=== PATIENT | female | born 1945 | race Caucasian/White ===

== ENCOUNTER → 2018-04-19 | Outpatient (CLI) | payer OTHER ==
--- NOTE | 2018-04-19 16:48 | RAD ---
CHEST PA LATERAL Clinical indications: cough for a couple weeks COMPARISON: October 18, 2009. Findings: Hyperinflation is seen consistent with COPD No acute lung infiltrate or pleural effusion or pulmonary edema or lung mass or pneumothorax is seen. The heart size, pulmonary vasculature, mediastinum and both arline are stable. The osseous structures appear intact. Impression: No acute radiographic abnormality is seen. Electronically signed by: Quique Alan MD (04/19/2018 4:44 PM) [place] [id number]
== END | disposition home or self-care (01) ==
LOC: PMG 10:53
DX: R06.00 Dyspnea, unspecified (principal); R05 Cough
CPT/HCPCS: 71046

== ENCOUNTER 2018-11-21 16:15 | Emergency (ER) | payer OTHER ==
[~2018-11-21] VITALS: Ht 172.7 cm; Wt 88.5 kg
--- NOTE | 2018-11-21 16:37 | PHYS DOC ---
Past History Past Medical History: Cancer (breast), Other Additional Past Medical Histor: "leaky heart valve" (ARLYN CALLAHAN DO) Past Medical History: COPD, Hypertension (LIZ CHRISTIANSON DO) Past Surgical History: Cholecystectomy, Knee Replacement Additional Past Surgical Histo: Lumpectomy right breast (LIZ CHRISTIANSON DO) Smoking: Cigarettes Drug Use: None (ARLYN CALLAHAN DO) Alcohol Use: None (LIZ CHRISTIANSON DO) Adult General Chief Complaint Chief Complaint: CHEST PAIN HPI HPI Patient is a 73-year-old female presents with chest discomfort that started last night. Better with exertion, worse with rest. No radiation of the discomfort. Mild shortness of breath. She has a history of breast cancer as well as recent travel from [place]. No cough. No fever. Notes some mild worsening swelling in her lower extremities bilaterally. There is no orthopnea. No pain with deep breaths, in fact deep breaths seem to make symptoms a little bit better.[] (ARLYN CALLAHAN DO) Review of Systems Review of Systems Constitutional: Denies fever or chills [] Eyes: Denies change in visual acuity, redness, or eye pain [] HENT: Denies nasal congestion or sore throat [] Respiratory: See history of present illness[] Cardiovascular: No additional information not addressed in HPI [] GI: Denies abdominal pain, nausea, vomiting, bloody stools or diarrhea [] : Denies dysuria or hematuria [] Musculoskeletal: Denies back pain or joint pain [] Integument: Denies rash or skin lesions [] Neurologic: Denies headache, focal weakness or sensory changes [] Endocrine: Denies polyuria or polydipsia [] All other systems were reviewed and found to be within normal limits, except as documented in this note. (ARLYN CALLAHAN DO) Allergies Allergies Allergies Coded Allergies Type Severity Reaction Last Updated Verified morphine Allergy Mild 04/19/18 Yes (ARLYN CALLAHAN DO) Physical Exam Physical Exam Constitutional: Well developed, well nourished, no acute distress, non-toxic appearance. [] HENT: Normocephalic, atraumatic, bilateral external ears normal, oropharynx moist, no oral exudates, nose normal. [] Eyes: PERRLA, EOMI, conjunctiva normal, no discharge. [] Neck: Normal range of motion, no tenderness, supple, no stridor. [] Cardiovascular:Heart rate tachycardic with a regular rhythm, no murmur [] Lungs & Thorax: Bilateral breath sounds clear to auscultation [] Abdomen: Bowel sounds normal, soft, no tenderness, no masses, no pulsatile masses. [] Skin: Warm, dry, no erythema, no rash. [] Back: No tenderness, no CVA tenderness. [] Extremities: No tenderness, no cyanosis, no clubbing, ROM intact, and plus pretibial edema bilaterally symmetric. [] Neurologic: Alert and oriented X 3, normal motor function, normal sensory f unction, no focal deficits noted. [] Psychologic: Affect normal, judgement normal, mood normal. [] (ARLYN CALLAHAN DO) Physical Exam Constitutional: Well developed, well nourished, no acute distress, non-toxic appearance HENT: Normocephalic, atraumatic, oropharynx moist Eyes: Conjunctiva normal, no discharge Cardiovascular: Heart rate normal, regular rhythm Lungs & Thorax: Bilateral breath sounds clear to auscultation, no wheezing Skin: Warm, dry, no erythema, no rash Neurologic: Alert and oriented X 3 Psychologic: Affect normal, judgement normal (LIZ CHRISTIANSON DO) EKG EKG EKG shows sinus tachycardia at 113 bpm, ST depressions in the anterior leads. Additional views were taken of the EKG including right-sided that did not show any ST elevations and posterior EKG was also performed that did not show any ST elevations. Initial EKG of obtained and interpreted by me at 1626. Repeat EKG at 1756 shows a rate of 96 bpm, normal axis, QTC of 423 ms, no improvement of ST depressions in the anterolateral leads, without resolution[] (ARLYN CALLAHAN DO) Radiology/Procedures Radiology/Procedures PROCEDURE: PORTABLE CHEST 1V EXAM: CHEST 1 VIEW History: Chest pain COMPARISON: 04/19/2018 TECHNIQUE: Single portable radiograph of the chest FINDINGS: Unchanged heart size. Prominent appearing aorta probably tortuous aorta. Minimal bibasilar lung atelectasis. The costophrenic sulci are clear and well demarcated. IMPRESSION: No acute cardiopulmonary findings. [] (ARLYN CALLAHAN DO) Radiology/Procedures PROCEDURE: CT ANGIOGRAPHY CHEST INDICATION: Chest pain and tachycardia COMPARISON: September 2009 CT chest TECHNIQUE: Axial CT images obtained through the chest. Intravenous contrast utilized. Angiogram 3D images processed per protocol. Additionally precontrast images were obtained One or more of the following individualized dose reduction techniques were utilized for this examination: 1. Automated exposure control; 2. Adjustment of the mA and/or kV according to patient size; 3. Use of iterative reconstruction technique. FINDINGS: Cystic changes within the bilateral lungs. No evidence of pneumothorax. There is some regions of interstitial thickening. Multiple pulmonary nodules which are less than 6 mm in size within the right lung. There is also some sub-6 mm nodules left lung Multiple low-density lesions within the partially visualized liver. Largest one has a cystic appearance and many of them are too small to characterize on this nondedicated exam. Mixed Attenuation right adrenal nodule measuring up to 35 mm with suspected fat and soft tissue component. Coronary artery calcific atherosclerosis. Postoperative changes to the right breast. There are some prominent lymph nodes within the mediastinum including precarinal region measuring up to 14 mm. Thyroid nodules. Degenerative changes throughout the spine. There are some calcified plaque within the thoracic aorta. Dilatation of the descending thoracic aorta which measures up to about 48 mm. The descending thoracic aorta has a crescent-shaped rim of low density along the periphery measuring up to about 15 mm in thickness. No central pulmonary embolus. IMPRESSION: No central pulmonary embolus. Aneurysmal dilatation of the ascending thoracic aorta measuring up to about 48 mm. [place]-shaped rim of soft tissue density along the descending thoracic aorta. Differential considerations include soft plaque as well as mural hematoma/mural thrombus. This was not present on prior from 2009 There are some small lung nodules measuring less than 6 mm. Cystic changes lungs which can be seen with chronic lung disease. Mixed attenuation right adrenal nodule is identified. There is some fat and some higher density component within. Could be from causes such as myelolipoma however a collision tumor is not excluded and a nonemergent MRI could better evaluate if further clarification is desired. Thyroid nodules. Ultrasound could better evaluate if further evaluation is desired. Fleischner Society recommendations for solitary solid lung nodule follow up.: In a low risk patient: <6mm - No follow up required. 6-8mm - 6-[address], then CT at 18-24 months. >8mm - CT at 3 months, PET/CT or tissue sampling. In a high risk patient (history of smoking or other known risk factors): <6mm - Follow up CT at 12 months. 6-8mm - 6-[address], then CT at 18-24 months. >8mm - CT at 3 months, PET/CT or tissue sampling. Fleischner Society recommendations for multiple solid lung nodule follow up.: In a low risk patient: <6mm - No follow up required. 6-8mm - 3-[address], then CT at 18-24 months. >8mm - CT at 3-6 months, then at 18-24 months. PET/CT or tissue sampling based on most suspicious nodule. In a high risk patient (history of smoking or other known risk factors): <6mm - Follow up CT at 12 months. 6-8mm - 3-[address], then CT at 18-24 months. >8mm - CT at 3-6 months, PET/CT or tissue sampling option based on most suspicious nodule. Electronically signed by: Cl Nino MD (11/21/2018 7:05 PM) [facility] (LIZ CHRISTIANSON DO) Course & Med Decision Making Course & Med Decision Making Pertinent Labs and Imaging studies reviewed. (See chart for details) ED course and medical decision making: Patient arrived, was placed in bed, and tolerated exam well. She was given aspirin due to concern about cardiac soy ology. Due to concern about possible PE given her risk factors of travel/stasis and hypercoagulable state from her breast cancer a CT angiogram of the chest wall PE was ordered. This showed some questionable filling defects in the thoracic aorta so a CT angiogram of the aorta was ordered. During this time, it was noted that she had an elevated troponin, consultation was made with c ardiology service. Consultation was also made with the hospitalist service who graciously accepted. At the time of this dictation patient cares endorsed to the nighttime physician with the CTA pending along with the transfer pending[] (ARLYN CALLAHAN DO) Course & Med Decision Making 1800- Sign out received from Dr. Callahan for patient with elevated troponin and significant ST depressions noted on EKG. Dr. Callahan previously discussed case with Dr. Jaramillo (hospitalist) and Dr. Gautam (cardiology) with plan for transfer to [facility]. Awaiting CT imaging for r/o dissection. Patient seen and evaluated by myself. Patient denies pain. Telemetry monitoring with normalization of ST segments. Labs reviewed. CTA chest without findings of dissection but noted significant ascending aortic aneurysm with concern for area with possible thrombus vs soft plaquing. Heparin bolus and gtt initiated. Brilinta also provided. CT findings of incidental pulmonary nodu les. Patient reports prior knowledge of pulmonary nodule. A copy of CT results provided to patient to given to PCP for future follow-up. 2100- Discussed CTA results with both Dr. Jaramillo and Dr. Gautam. Patient stable for transfer for previously arranged transfer for admission to [facility] under Dr. Jaramillo. Discussed findings and plan with patient and family, who acknowledge understanding and agreement. (LIZ CHRISTIANSON DO) Dragon Disclaimer Dragon Disclaimer This electronic medical record was generated, in whole or in part, using a voice recognition dictation system. (ARLYN CALLAHAN DO) Departure Departure: Impression: Primary Impression: NSTEMI (non-ST elevated myocardial infarction) Additional Impressions: Aortic aneurysm Lung nodule, multiple Disposition: 05 TRANSFER OTHER ([facility]) Admitting Physician: Randy Jaramillo (LIZ CHRISTIANSON DO) Condition: GUARDED Referrals: NICHELLE SOUZA (PCP) HEART Score for Chest Pain PTs The HEART Score for CP Pts HEART Score for Chest Pain: HEART Score for Chest Pain Response (Comments) Value History Highly Suspicious [address] Depression 2 Age > 65 2 Risk Factors >3 Risk Factors or Hx CAD 2 Troponin >3 x Normal Limit 2 Total 10 Risk Factors: Risk Factors: DM, Current or recent (<one month) smoker, HTN, HLP, family history of CAD, obesity. Risk Scores: Score 0 - 3: 2.5% MACE over next 6 weeks - Discharge Home Score 4 - 6: 20.3% MACE over next 6 weeks - Admit for Clinical Observation Score 7 - 10: 72.7% MACE over next 6 weeks - Early Invasive Strategies (LIZ CHRISTIANSON DO) Critical Care Time Critical care time was 30 minutes which includes time at bedside, spent in discussion of patient's care with specialists and/or family members, with interpretation of laboratory and/or radiological studies and is exclusive of procedures. (LIZ CHRISTIANSON DO) Problem Qualifiers Additional Impressions: Aortic aneurysm Aortic location: thoracic aorta Presence of rupture: without rupture Qualified Codes: I71.2 - Thoracic aortic aneurysm, without rupture ARLYN CALLAHAN DO Nov 21, 2018 16:37 LIZ CHRISTIANSON DO Nov 21, 2018 21:29
--- NOTE | 2018-11-21 16:49 | RAD ---
EXAM: CHEST 1 VIEW History: Chest pain COMPARISON: 04/19/2018 TECHNIQUE: Single portable radiograph of the chest FINDINGS: Unchanged heart size. Prominent appearing aorta probably tortuous aorta. Minimal bibasilar lung atelectasis. The costophrenic sulci are clear and well demarcated. IMPRESSION: No acute cardiopulmonary findings. Electronically signed by: Sung Armstrong MD (11/21/2018 4:46 PM) [place] [id number]
[2018-11-21 16:53] LABS: BASO % 1 % (0-3); EOS % 0 % (0-3); HEMATOCRIT 41.9 % (36.0-47.0); HEMOGLOBIN 13.8 g/dL (12.0-15.5); LYMPH # 0.9 x10^3/uL (1.0-4.8); LYMPH % 25 % (24-48); MEAN CORPUSCULAR HEMOGLOBIN 36 pg (25-35); MEAN CORPUSCULAR HGB CONC 33 g/dL (31-37); MEAN CORPUSCULAR VOLUME 110 fL (79-100); MONO # 0.6 x10^3/uL (0.0-1.1); MONO % 16 % (0-9); NEUT # 2.2 x10^3uL (1.8-7.7); NEUT % 58 % (31-73); PLATELET COUNT 140 x10^3/uL (140-400); RED CELL DISTRIBUTION WIDTH 14.7 % (11.5-14.5); WHITE BLOOD COUNT 3.8 x10^3/uL (4.0-11.0)
[2018-11-21] MEDS: IV NORMAL SALINE 1,000ML 1,000 ML IV SCH (16:58)
[2018-11-21] MEDS: ASPIRIN 81 MG TAB.CHEW PO ONE (16:58)
[2018-11-21] MEDS ORDERED: IOHEXOL 350 MG/ML 100 ML VIAL. IV ONE ×2 (17:00→18:15)
--- NOTE | 2018-11-21 17:03 | EKG ---
[address] [address] Test Date: 2018-11-21 Test Time: 16:52:17 Pat Name: DEB HOLLY Department: Room: Gender: F Terminal Carman: RUPERT : 1945 Requested By: ARLYN CANTOR Order Number: [id number] Reading MD: Measurements Intervals [place] Rate: 99 P: SD: QRS: 70 QRSD: 88 T: 63 QT: 332 QTc: 431 Interpretive Statements IRREGULAR RHYTHM, NO P-WAVE FOUND VENTRICULAR PREMATURE COMPLEX(ES) QRS(T) CONTOUR ABNORMALITY CONSISTENT WITH ANTEROLATERAL INFARCT AGE UNDETERMINED ABNORMAL ECG RI6.01 No previous ECG available for comparison
--- NOTE | 2018-11-21 17:10 | EKG ---
[address] [address] Test Date: 2018-11-21 Test Time: 16:31:18 Pat Name: DEB HOLLY Department: Room: Gender: F Memorial Adviser: MELANIE : 1945 Requested By: ARLYN CANTOR Order Number: [id number] Reading MD: Measurements Intervals [place] Rate: 110 P: 90 [place]: 192 QRS: 68 QRSD: 90 T: 55 QT: 306 QTc: 419 Interpretive Statements SINUS TACHYCARDIA COMPLEX(ES) WITH ABERRANT INTRAVENTRICULAR CONDUCTION QRS(T) CONTOUR ABNORMALITY CONSISTENT WITH ANTEROLATERAL INFARCT AGE UNDETERMINED T ABNORMALITY IN ANTERIOR LEADS ABNORMAL ECG RI6.01 No previous ECG available for comparison
[2018-11-21 17:15] LABS: ALBUMIN 3.9 g/dL (3.4-5.0); ALBUMIN/GLOBULIN RATIO 1.3 (1.0-1.7); CALCIUM 9.7 mg/dL (8.5-10.1); GFR 54.2; MAGNESIUM 1.9 mg/dL (1.8-2.4); POTASSIUM 3.7 mmol/L (3.5-5.1); TOTAL BILIRUBIN 0.3 mg/dL (0.2-1.0); TOTAL PROTEIN 6.9 g/dL (6.4-8.2)
--- NOTE | 2018-11-21 17:16 | EKG ---
[address] [address] Test Date: 2018-11-21 Test Time: 16:26:51 Pat Name: DEB HOLLY Department: Room: Gender: F Row Boss Hoeing: MELANIE : 1945 Requested By: ARLYN CANTOR Order Number: [id number] Reading MD: Alejandro Gautam MD Measurements Intervals [place] Rate: 113 P: 90 [place]: 176 QRS: 61 QRSD: 94 T: 38 QT: 328 QTc: 456 Interpretive Statements SINUS TACHYCARDIA FREQUENT PVC'S ANTEROLATERAL ISCHEMIA Electronically Signed On 11-22-2018 9:25:06 CDT by Alejandro Gautam MD
[2018-11-21] MEDS: IOHEXOL 300 MG/ML 75 ML VIAL. IV ONE (17:40)
[2018-11-21] MEDS ORDERED: HEPARIN for IV BOLUS 10,000 UNIT/10 ML VIAL. IV ONE (17:45)
[2018-11-21] MEDS ORDERED: HEPARIN 25,000UTS/500ML PREMIX 500 ML IV PRN (17:45)
[2018-11-21] MEDS ORDERED: HEPARIN for IV BOLUS 10,000 UNIT/10 ML VIAL. IV PRN ×2 (17:45)
--- NOTE | 2018-11-21 17:58 | EKG ---
[address] [address] Test Date: 2018-11-21 Test Time: 17:56:29 Pat Name: DEB HOLLY Department: Room: Gender: F [employer] Methods Analyst: RUPERT : 1945 Requested By: ARLYN CANTOR Order Number: [id number] Reading MD: Measurements Intervals [place] Rate: 96 P: 53 [place]: 192 QRS: 68 QRSD: 90 T: 60 QT: 334 QTc: 423 Interpretive Statements SINUS RHYTHM QRS(T) CONTOUR ABNORMALITY CONSIDER ANTEROLATERAL MYOCARDIAL DAMAGE POSSIBLY ABNORMAL ECG RI6.01 No previous ECG available for comparison
[2018-11-21 18:23] LABS: ANISOCYTOSIS SLIGHT; PLT ESTIMATE ADEQUATE (ADEQUATE)
[2018-11-21] MEDS: IOHEXOL 350 MG/ML 100 ML VIAL. IV ONE (18:57)
--- NOTE | 2018-11-21 19:08 | RAD ---
INDICATION: Chest pain and tachycardia COMPARISON: September 2009 CT chest TECHNIQUE: Axial CT images obtained through the chest. Intravenous contrast utilized. Angiogram 3D images processed per protocol. Additionally precontrast images were obtained One or more of the following individualized dose reduction techniques were utilized for this examination: 1. Automated exposure control; 2. Adjustment of the mA and/or kV according to patient size; 3. Use of iterative reconstruction technique. FINDINGS: Cystic changes within the bilateral lungs. No evidence of pneumothorax. There is some regions of interstitial thickening. Multiple pulmonary nodules which are less than 6 mm in size within the right lung. There is also some sub-6 mm nodules left lung Multiple low-density lesions within the partially visualized liver. Largest one has a cystic appearance and many of them are too small to characterize on this nondedicated exam. Mixed Attenuation right adrenal nodule measuring up to 35 mm with suspected fat and soft tissue component. Coronary artery calcific atherosclerosis. Postoperative changes to the right breast. There are some prominent lymph nodes within the mediastinum including precarinal region measuring up to 14 mm. Thyroid nodules. Degenerative changes throughout the spine. There are some calcified plaque within the thoracic aorta. Dilatation of the descending thoracic aorta which measures up to about 48 mm. The descending thoracic aorta has a crescent-shaped rim of low density along the periphery measuring up to about 15 mm in thickness. No central pulmonary embolus. IMPRESSION: No central pulmonary embolus. Aneurysmal dilatation of the ascending thoracic aorta measuring up to about 48 mm. [place]-shaped rim of soft tissue density along the descending thoracic aorta. Differential considerations include soft plaque as well as mural hematoma/mural thrombus. This was not present on prior from 2009 There are some small lung nodules measuring less than 6 mm. Cystic changes lungs which can be seen with chronic lung disease. Mixed attenuation right adrenal nodule is identified. There is some fat and some higher density component within. Could be from causes such as myelolipoma however a collision tumor is not excluded and a nonemergent MRI could better evaluate if further clarification is desired. Thyroid nodules. Ultrasound could better evaluate if further evaluation is desired. Fleischner Society recommendations for solitary solid lung nodule follow up.: In a low risk patient: <6mm - No follow up required. 6-8mm - 6-[address], then CT at 18-24 months. >8mm - CT at 3 months, PET/CT or tissue sampling. In a high risk patient (history of smoking or other known risk factors): <6mm - Follow up CT at 12 months. 6-8mm - 6-[address], then CT at 18-24 months. >8mm - CT at 3 months, PET/CT or tissue sampling. Fleischner Society recommendations for multiple solid lung nodule follow up.: In a low risk patient: <6mm - No follow up required. 6-8mm - 3-[address], then CT at 18-24 months. >8mm - CT at 3-6 months, then at 18-24 months. PET/CT or tissue sampling based on most suspicious nodule. In a high risk patient (history of smoking or other known risk factors): <6mm - Follow up CT at 12 months. 6-8mm - 3-[address], then CT at 18-24 months. >8mm - CT at 3-6 months, PET/CT or tissue sampling option based on most suspicious nodule. Electronically signed by: Cl Nino MD (11/21/2018 7:05 PM) [facility]
--- NOTE | 2018-11-21 19:49 | RAD ---
Please note that the patient originally had a pulmonary embolus protocol CT examination however there is an aortic abnormality therefore pre and postcontrast images were obtained per aorta protocol. The dictation under the pulmonary embolus heading pertains to both studies. Electronically signed by: Cl iNno MD (11/21/2018 7:45 PM) [facility]
[2018-11-21] MEDS: HEPARIN for IV BOLUS 10,000 UNIT/10 ML VIAL. IV ONE (20:15)
[2018-11-21] MEDS: METOPROLOL TART IMMED RELEASE 25 MG TABLET PO ONE (20:19)
[2018-11-21] MEDS: TICAGRELOR 90 MG TABLET. PO ONE (20:20)
[2018-11-21] MEDS: HEPARIN 25,000UTS/500ML PREMIX 500 ML IV PRN (20:22)
[2018-11-21 21:17] VITALS: BP 152/82
== END 2018-11-21 21:27 | disposition short-term general hospital (02) ==
LOC: ER 16:15
DX: I21.4 Non-ST elevation (NSTEMI) myocardial infarction (principal); I71.2 Thoracic aortic aneurysm, without rupture; R91.8 Other nonspecific abnormal finding of lung field; J44.9 Chronic obstructive pulmonary disease, unspecified; I10 Essential (primary) hypertension; F17.210 Nicotine dependence, cigarettes, uncomplicated; Z88.5 Allergy status to narcotic agent
CPT/HCPCS: 36415; 71045; 71275; 80053; 83690; 83735; 83880; 84484; 85025; 85379; 85610; 85730; 93005; 96365; 96375; 96376; 99291; J1644; J3010; Q9967; 99285-25; J7030

== ENCOUNTER 2018-12-14 11:07 | Observation (INO) | payer OTHER ==
[~2018-12-14] VITALS: Ht 172.7 cm; Wt 88.0 kg
--- NOTE | 2018-12-14 11:46 | PHYS DOC ---
Past History Past Medical History: CAD, COPD, High Cholesterol, Hypertension Additional Past Medical Histor: "leaky heart valve" Past Surgical History: Cholecystectomy, Knee Replacement, Other Additional Past Surgical Histo: Lumpectomy right breast Smoking: Cigarettes Alcohol Use: None Drug Use: None Adult General Chief Complaint Chief Complaint: CHEST PAIN-CARDIAC NATURE HPI HPI Patient is a 73-year-old female presents complaining of diaphoresis and a little bit of chest pain this morning. Discomfort improved with deep breaths. Little bit worse with exertion, better with rest. There is no radiation of the discomfort. Patient was treated for a non-STEMI approximately 3 weeks ago with cardiac stenting. She has been on her new medicine since that time. She also endorses feeling of sleepiness today as well. She denies any fever. Denies any cough. She notes her left leg is swollen when compared to yesterday. She does have a history of breast cancer, and was taken off of her chemotherapy oral medication approximately 3 weeks ago as well.[] Review of Systems Review of Systems Constitutional: Denies fever or chills [] Eyes: Denies change in visual acuity, redness, or eye pain [] HENT: Denies nasal congestion or sore throat [] Respiratory: Denies cough or shortness of breath [] Cardiovascular: No additional information not addressed in HPI [] GI: Denies abdominal pain, nausea, vomiting, bloody stools or diarrhea [] : Denies dysuria or hematuria [] Musculoskeletal: Denies back pain or joint pain, see history of present illness [] Integument: Denies rash or skin lesions [] Neurologic: Denies headache, focal weakness or sensory changes [] Endocrine: Denies polyuria or polydipsia [] All other systems were reviewed and found to be within normal limits, except as documented in this note. Allergies Allergies Allergies Coded Allergies Type Severity Reaction Last Updated Verified morphine Allergy Mild 12/14/18 Yes Physical Exam Physical Exam Constitutional: Well developed, well nourished, no acute distress, non-toxic appearance. [] HENT: Normocephalic, atraumatic, bilateral external ears normal, oropharynx moist, no oral exudates, nose normal. [] Eyes: PERRLA, EOMI, conjunctiva normal, no discharge. [] Neck: Normal range of motion, no tenderness, supple, no stridor. [] Cardiovascular:Heart rate regular rhythm, no murmur [] Lungs & Thorax: Bilateral breath sounds clear to auscultation [] Abdomen: Bowel sounds normal, soft, no tenderness, no masses, no pulsatile masses. [] Skin: Warm, dry, no erythema, no rash. [] Back: No tenderness, no CVA tenderness. [] Extremities: No tenderness, no cyanosis, no clubbing, ROM intact, left lower extremity is swollen compared to her right. Negative Homans sign[] Neurologic: Alert and oriented X 3, normal motor function, normal sensory function, no focal deficits noted. [] Psychologic: Affect normal, judgement normal, mood normal. [] Current Patient Data Vital Signs Vital Signs Date Time Temp Pulse Resp B/P (MAP) Pulse Ox O2 Delivery O2 Flow Rate FiO2 12/14/18 11:15 98.6 60 18 98 Room Air EKG EKG EKG shows a sinus rhythm at 50 bpm, normal axis, QTC of 376 ms, no ST eleva tions. When compared with EKG of 11/21/2018, the ST depression in the anterolateral leads has generally improved. Interpreted by me at 1116.[] Radiology/Procedures Radiology/Procedures PROCEDURE: CT ANGIOGRAPHY CHEST Examination: CT angiography chest HISTORY: History of chest pain, elevated d-dimer, history of breast cancer. COMPARISON: 11/21/2018 TECHNIQUE: Axial CT angiographic images of chest were performed with IV contrast. Coronal and sagittal 3-D MIP reformats are performed. Exposure: One or more of the following individualized dose reduction techniques were utilized for this examination: 1. Automated exposure control 2. Adjustment of the mA and/or kV according to patient size 3. Use of iterative reconstruction technique FINDINGS: Hypodense nodule identified in the left lobe of thyroid gland similar to prior exam. The central airways are patent. The ascending aorta measures 5 cm in transverse dimension. Mural thrombus or soft plaque identified in the descending aorta similar to prior exam. Evaluation of the aorta is limited without IV contrast within the aorta. The heart size grossly appears unremarkable. No evidence of filling defect identified in the main pulmonary arterial trunk and right and left main pulmonary arteries and the visualized lobar, segmental branches of the pulmonary arteries. Mild lung emphysematous changes. Mild bibasilar lung airspace opacities likely atelectasis or infiltrates. The liver demonstrates cystic structures the largest measuring 1.6 cm and the left lobe likely cysts. The spleen, left adrenal grossly appears unremarkable. There is a nodule identified in the right adrenal gland measuring 2.4 cm and measuring 29 Hounsfield units similar to prior exam. Moderate degenerative changes thoracic spine. IMPRESSION: 1. No evidence of pulmonary embolism. 2. Aneurysmal dilatation of the ascending thoracic aorta again identified. 3. Right adrenal lesion similar to prior exam. Follow-up nonemergent MRI can be considered. PROCEDURE: PORTABLE CHEST 1V EXAM: CHEST 1 VIEW History: Shortness of breath COMPARISON: 04/19/2018 TECHNIQUE: Single portable radiograph of the chest FINDINGS: Mild cardiomegaly. Tortuous appearing aorta similar to prior exam. The lungs are clear. Surgical clips project in the right chest . IMPRESSION: No acute cardiopulmonary findings[] Course & Med Decision Making Course & Med Decision Making Pertinent Labs and Imaging studies reviewed. (See chart for details) ED course: Patient arrived, was placed in bed, and tolerated exam well. She was given IV fluids, transported to and from radiology with any complications. After the return of laboratory and imaging studies, these were discussed with the patient and family who voiced understanding. All questions were answered. Consultation was made with hospitalist service for admission. She was admitted in improved condition. Discussion with cardiology, they felt if 2 sets of cardiac enzymes were negative she could be admitted here at [facility] for further evaluation and treatment. Medical decision makin-year-old female with chest discomfort. She is post recent cardiac catheter with stent placement for a non-STEMI. There is no evid ence of a pulmonary embolism on CT scan after her history of breast cancer, a swollen left leg, and elevated d-dimer. There is no evidence of a dissecting aneurysm. There is an aneurysm noted. No evidence of pneumonia or pneumothorax. No evidence of esophageal rupture. She is being admitted for further evaluation and treatment.[] Dragon Disclaimer Dragon Disclaimer This electronic medical record was generated, in whole or in part, using a voice recognition dictation system. Departure Departure: Impression: Primary Impression: Chest pain Disposition: ADMITTED INPATIENT Admitting Physician: Randy Jaramillo Condition: IMPROVED Referrals: NICHELLE SOUZA (PCP) Problem Qualifiers Primary Impression: Chest pain Chest pain type: unspecified Qualified Codes: R07.9 - Chest pain, unspecified ARLYN CANTOR DO Dec 14, 2018 11:46
[2018-12-14 11:48] LABS: BASO % 1 % (0-3); EOS # 0.1 x10^3/uL (0.0-0.7); EOS % 2 % (0-3); HEMATOCRIT 33.7 % (36.0-47.0); HEMOGLOBIN 11.3 g/dL (12.0-15.5); LYMPH # 0.8 x10^3/uL (1.0-4.8); LYMPH % 32 % (24-48); MEAN CORPUSCULAR HEMOGLOBIN 37 pg (25-35); MEAN CORPUSCULAR HGB CONC 33 g/dL (31-37); MEAN CORPUSCULAR VOLUME 109 fL (79-100); MONO # 0.6 x10^3/uL (0.0-1.1); MONO % 21 % (0-9); NEUT # 1.1 x10^3uL (1.8-7.7); NEUT % 43 % (31-73); PLATELET COUNT 142 x10^3/uL (140-400); RED BLOOD COUNT 3.08 x10^6/uL (3.50-5.40); RED CELL DISTRIBUTION WIDTH 14.8 % (11.5-14.5); WHITE BLOOD COUNT 2.6 x10^3/uL (4.0-11.0)
[2018-12-14 12:01] LABS: ALBUMIN 3.3 g/dL (3.4-5.0); CALCIUM 8.7 mg/dL (8.5-10.1); CREATININE 1.3 mg/dL (0.6-1.0); POTASSIUM 3.6 mmol/L (3.5-5.1); TOTAL BILIRUBIN 0.4 mg/dL (0.2-1.0); TOTAL PROTEIN 6.5 g/dL (6.4-8.2)
--- NOTE | 2018-12-14 12:07 | RAD ---
EXAM: CHEST 1 VIEW History: Shortness of breath COMPARISON: 04/19/2018 TECHNIQUE: Single portable radiograph of the chest FINDINGS: Mild cardiomegaly. Tortuous appearing aorta similar to prior exam. The lungs are clear. Surgical clips project in the right chest . IMPRESSION: No acute cardiopulmonary findings Electronically signed by: Sung Armstrong MD (12/14/2018 12:05 PM) [id number]
[2018-12-14] MEDS ORDERED: IV NORMAL SALINE 500ML 500 ML IV ONE (12:30)
[2018-12-14] MEDS ORDERED: IOHEXOL 350 MG/ML 100 ML VIAL. IV ONE (12:45)
--- NOTE | 2018-12-14 13:06 | EKG ---
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
[2018-12-14 13:10] LABS: BACTERIA,URINE 0 /HPF (0-FEW); BILIRUBIN,URINE NEG (NEG); CLARITY,URINE HAZY; COLOR,URINE YELLOW; GLUCOSE,URINE NEG (NEG); NITRITE,URINE NEG (NEG); RBC,URINE OCC /HPF (0-2); SQUAMOUS EPITHELIAL CELL,UR OCC /LPF; UROBILINOGEN,URINE 0.2 mg/dL (0.2 mg/dL); WBC,URINE OCC /HPF (0-4)
--- NOTE | 2018-12-14 13:37 | RAD ---
Examination: CT angiography chest HISTORY: History of chest pain, elevated d-dimer, history of breast cancer. COMPARISON: 11/21/2018 TECHNIQUE: Axial CT angiographic images of chest were performed with IV contrast. Coronal and sagittal 3-D MIP reformats are performed. Exposure: One or more of the following individualized dose reduction techniques were utilized for this examination: 1. Automated exposure control 2. Adjustment of the mA and/or kV according to patient size 3. Use of iterative reconstruction technique FINDINGS: Hypodense nodule identified in the left lobe of thyroid gland similar to prior exam. The central airways are patent. The ascending aorta measures 5 cm in transverse dimension. Mural thrombus or soft plaque identified in the descending aorta similar to prior exam. Evaluation of the aorta is limited without IV contrast within the aorta. The heart size grossly appears unremarkable. No evidence of filling defect identified in the main pulmonary arterial trunk and right and left main pulmonary arteries and the visualized lobar, segmental branches of the pulmonary arteries. Mild lung emphysematous changes. Mild bibasilar lung airspace opacities likely atelectasis or infiltrates. The liver demonstrates cystic structures the largest measuring 1.6 cm and the left lobe likely cysts. The spleen, left adrenal grossly appears unremarkable. There is a nodule identified in the right adrenal gland measuring 2.4 cm and measuring 29 Hounsfield units similar to prior exam. Moderate degenerative changes thoracic spine. IMPRESSION: 1. No evidence of pulmonary embolism. 2. Aneurysmal dilatation of the ascending thoracic aorta again identified. 3. Right adrenal lesion similar to prior exam. Follow-up nonemergent MRI can be considered. Electronically signed by: Sung Armstrong MD (12/14/2018 1:34 PM) [id number]
[2018-12-14] MEDS ORDERED: ACETAMINOPHEN 325 MG TABLET PO PRN (15:30)
[2018-12-14] MEDS ORDERED: NITROGLYCERIN SUBLINGUAL 0.4 MG BOTTLE OF 25. SL PRN (15:30)
[2018-12-14] MEDS ORDERED: ONDANSETRON PF 4 MG/2 ML VIAL. IV PRN (15:30)
[2018-12-14 16:24] VITALS: BP 147/72
[2018-12-14] MEDS ORDERED: TICA90TA PO (17:33)
[2018-12-14] MEDS ORDERED: ASPI-630 PO (17:33)
[2018-12-14] MEDS ORDERED: SIMV40TA3 PO (17:33)
[2018-12-14] MEDS ORDERED: FURO-69 PO (17:45)
[2018-12-14] MEDS ORDERED: CHOL100014 PO (17:45)
[2018-12-14] MEDS ORDERED: VALS80TA3 PO (17:45)
[2018-12-14] MEDS ORDERED: METO25TA4 PO (17:45)
[2018-12-14] MEDS ORDERED: CALC-30 PO (17:45)
--- NOTE | 2018-12-14 18:18 | HP ---
ADMIT DATE: 12/14/2018 HISTORY OF PRESENT ILLNESS: The patient is a 73-year-old female patient who came to the Emergency Room, complaining that she woke up this morning with marked diaphoresis, has also chest pain and discomfort that has improved with deep breath. Her chest discomfort is worse with exertion, better with rest. Denied any radiation. She has had non-ST segment elevation myocardial infarction 2 weeks ago with cardiac stenting. She in fact has triple vessel disease and was seen by the cardiothoracic surgeon for coronary artery bypass graft surgery; however, she has stage 4 breast cancer and a decision was made to stent her left anterior and circumflex arteries. The patient denied any fever, denied any chills or rigors. Denied any cough. She was concerned that her left leg is more swollen when compared to yesterday and she was worried that she might have clots in her legs. She has a history of breast cancer and was taken off for her chemotherapy, oral medication approximately 3 weeks ago. She apparently contacted her primary workers compensation manager, who recommended that she come to the Emergency Room here at [facility] where she was evaluated. She has 2 sets of cardiac enzymes that were negative for myocardial infarction and therefore, a decision was made to admit her to [facility]. She was extensively investigated in the Emergency Room and was found to have leukopenia as well as mild thrombocytopenia. Her chemistry showed that her 2 sets of cardiac enzymes were less than 0.017. Her D-dimer was high at 2.46. Urinalysis was unremarkable. She has had a CT angio of the chest, which basically showed the patient has hypodense nodule identified in the left lower thyroid gland similar to prior exam. Central airways are patent. Ascending aorta measures 5 cm in transverse diameter. She has mural thrombus or soft plaque identified in the descending aorta similar to prior exam. Evaluation of the aorta is limited without IV contrast within the aorta. The heart size grossly appears unremarkable. No evidence of filling defects identified in the main pulmonary arterial trunk and right and left main pulmonary arteries and the visualized lobar segmental branches of the pulmonary arteries, mild lung emphysematous changes, mild bibasilar lung airspace opacities likely atelectasis or infiltrates. The liver demonstrates cystic structures, the largest measured 1 cm and the left adrenal grossly appears unremarkable. There is a nodule identified in the right adrenal gland measuring 2.4 cm and measures 29 Hounsfield units, similar to prior exam. Moderate degenerative changes of thoracic spine. Therefore, the finding which showed no evidence of pulmonary embolism, aneurysmal dilatation of the ascending thoracic aorta again identified and right adrenal lesion similar to prior exam. The patient was admitted to be investigated further. We did consult the cardiology team for that. PAST MEDICAL HISTORY: Significant for; 1. Non-ST segment elevation myocardial infarction. 2. Coronary artery disease, status post percutaneous coronary intervention with stent deployment to the left anterior descending and left circumflex. The patient has ascending aortic aneurysm with possible mural thrombus, has stage 4 breast cancer. She is also known to have chronic obstructive pulmonary disease, hypertension. PAST SURGICAL HISTORY: Significant for knee replacement, cholecystectomy, lumpectomy of the right breast, most recently PCI with stent deployment to the left ascending and left circumflex artery. FAMILY HISTORY: Noncontributory. SOCIAL HISTORY: She is . Quit smoking since she had non-ST segment elevation myocardial infarction. She does not drink alcohol or use any recreational drugs. ALLERGIES: She is allergic to MORPHINE. REVIEW OF SYSTEMS: As per history of present illness. PHYSICAL EXAMINATION: GENERAL: On arrival to the Emergency Room, she looked well, slightly pale, but no jaundice, cyanosis or thyromegaly. No jugular venous distention. No limb edema. VITAL SIGNS: Her heart rate was 60, blood pressure was 139/64, temperature was 98.6, respiratory rate was 18 and oxygen saturation was 98%. HEAD, EYES, EARS, NOSE AND THROAT: Showed normocephalic, atraumatic. NECK: Supple. HEART: Showed normal first and second heart sounds with no gallop, rub or murmur. CHEST: Clear to auscultation. No crepitation or rhonchi. ABDOMEN: Distended, soft, nontender. No guarding or rigidity. No organomegaly. All hernial orifices are intact. Bowel sounds normal. NEUROLOGIC: She is awake, alert, responding appropriately. All cranial nerves intact. EXTREMITIES: She moves extremities without difficulty. She ambulates without assistance or assistive devices. LABORATORY DATA: Her lab work showed a white cell count of 2600, hemoglobin 11, hematocrit 33, MCV 109 and platelet count of 142,000. Her chemistry showed a serum sodium of 145, potassium 3.6, chloride 109, bicarbonate 29, anion gap of 7, BUN 15, creatinine 1.3, estimated GFR was 40 mL per minute. Her glucose 107, calcium was 8.7, magnesium 2. Total bilirubin, AST, ALT, alkaline phosphatase were normal. Total protein was 6.5, albumin was 3.3. Her first troponin was less than 0.017. Her prothrombin time was 10.3, INR of 1, aPTT was 24. D-dimer was high at 2.46. Urinalysis was essentially unremarkable. Her chest x-ray showed no acute cardiopulmonary finding and CT angio of the chest showed no acute pulmonary embolism, aneurysmal dilatation of the ascending thoracic aorta again identified, right adrenal lesion similar to prior exam. Plan is to do 2 more sets of cardiac enzymes. We will check her fasting lipid profile, consult the Cardiology team. I will arrange also for her to have ultrasound of both lower extremities. Meanwhile, we will continue with all her medication and decide accordingly. NAYELI FORRESTER MD DR: ALIVIA/seth JOB#: [id number] / [id number]
[2018-12-14 19:57] VITALS: BP 137/70
[2018-12-14] MEDS: CHOLECALCIFEROL (VITAMIN D3) 1,000 UNIT TABLET PO SCH (20:35)
[2018-12-14] MEDS: METOPROLOL TART IMMED RELEASE 25 MG TABLET PO SCH (20:35)
[2018-12-14] MEDS: TICAGRELOR 90 MG TABLET. PO SCH (20:39)
[2018-12-14] MEDS ORDERED: ASPIRIN 81 MG TAB.CHEW PO SCH (21:00)
[2018-12-14] MEDS ORDERED: SIMVASTATIN 40 MG TABLET. PO SCH (21:00)
[2018-12-14 22:24] VITALS: BP 129/75
[2018-12-15 05:20] VITALS: BP 113/55
[2018-12-15 06:40] LABS: CALCIUM 8.6 mg/dL (8.5-10.1); CREATININE 1.1 mg/dL (0.6-1.0); GFR 48.6; POTASSIUM 3.9 mmol/L (3.5-5.1)
[2018-12-15] MEDS ORDERED: CALCIUM CARB/VIT D3 500/200 TABLET PO SCH (08:00)
[2018-12-15] MEDS: CHOLECALCIFEROL (VITAMIN D3) 1,000 UNIT TABLET PO SCH (08:20)
[2018-12-15] MEDS: TICAGRELOR 90 MG TABLET. PO SCH (08:20)
[2018-12-15] MEDS: METOPROLOL TART IMMED RELEASE 25 MG TABLET PO SCH (08:20)
[2018-12-15] MEDS ORDERED: LOSARTAN 50 MG TABLET. PO SCH (09:00)
[2018-12-15 10:58] VITALS: BP 94/52
--- NOTE | 2018-12-15 13:04 | RAD ---
CLINICAL HISTORY: Bilateral lower extremity swelling, elevated d-dimer COMPARISON: None available. TECHNIQUE: Ultrasound evaluation of the bilateral lower extremities was performed from the groin to the upper calf with valenzuela scale, spectral and color doppler evaluation. FINDINGS: The bilateral common femoral vein, and femoral vein, including the saphenous-femoral junction are normal in appearance. Color and spectral Doppler evaluation demonstrates normal spontaneous flow, augmentation and phasicity. The bilateral popliteal vein and visualized calf veins also demonstrate normal compressibility and flow. 3.9 cm cystic collection at the left popliteal fossa likely Rinaldi's cyst. IMPRESSION: 1. No evidence for bilateral lower extremity DVT 2. 3.9 cm cystic collection at the left popliteal fossa likely Rinaldi's cyst. Electronically signed by: John Cassidy MD (12/15/2018 1:01 PM) [facility]
[2018-12-15 14:47] VITALS: BP 116/70
--- NOTE | 2018-12-15 19:32 | PN ---
DATE: 12/15/2018 SUBJECTIVE: The patient is resting, slightly propped up in bed, in no apparent distress. She denied any further episodes of chest pain or shortness of breath. Denied any diaphoresis, nausea or vomiting. She did complain of some dizziness after she takes her metoprolol. She has had so far 3 sets of cardiac enzymes that were negative. Her liver and lipid profile showed that her total cholesterol was 125, LDL was 52, VLDL was 23, HDL was 50 and the ratio was 2. PHYSICAL EXAMINATION: GENERAL: When I examined her this morning, she looked pale, but no jaundice or cyanosis. No lymphadenopathy. No thyromegaly. No jugular venous distention. No lower limb edema. VITAL SIGNS: Her heart rate was 59, blood pressure was 94/52, temperature was 97.7, respiratory rate 20 and oxygen saturation was 96%. HEAD, EYES, EARS, NOSE AND THROAT: Normocephalic, atraumatic. NECK: Supple. HEART: Showed normal first and second heart sounds. No gallop or murmur. CHEST: Clear to auscultation. No crepitation or rhonchi. ABDOMEN: Distended, soft, nontender. NEUROLOGIC: She is awake, alert, responding appropriately. All cranial nerves intact. She moves extremities without difficulty. She ambulates without assistance or assistive devices. LABORATORY DATA: This morning showed serum sodium 144, potassium 3.9, chloride 110, bicarbonate 25, anion gap of 9, BUN 13, creatinine 1.1, estimated GFR was 48 mL per minute, glucose was 98, calcium was 8.6. Her white cell count was 2600, hemoglobin 11, hematocrit 33, MCV 109 and platelet count of 142,000. Her D-dimer was high at 2.46. Urinalysis was unremarkable. ASSESSMENT AND PLAN: This is a 73-year-old female patient who recently was admitted with non-ST segment elevation myocardial infarction and underwent percutaneous coronary intervention with stent deployment to her left anterior descending and left circumflex, who presented complaining of chest discomfort and diaphoresis. Her discomfort was worse with exertion, better with rest. Denied any radiation and therefore we did 3 sets of cardiac enzymes that all ruled out myocardial infarction. Her lipid profile seems to be well controlled. The patient did complain of dizziness after she takes her beta blockers. She is only on 12.5 mg twice a day. I will await further evaluation by the liquor establishment manager and if okay she can be discharged home to follow with them as an outpatient. NAYELI FORRESTER MD DR: ALIVIA/seth JOB#: [id number] / [id number]
[2018-12-17] MEDS ORDERED: FUROSEMIDE 20 MG TABLET PO SCH (16:00)
== END 2018-12-15 14:50 | disposition home or self-care (01) ==
LOC: ER 11:07 → 1 SOUTH 16:07 → INTOOBSV 16:07
PROVIDERS: ADMIT Internal Medicine; ATTEND Internal Medicine
DX: R07.89 Other chest pain (principal); I25.10 Atherosclerotic heart disease of native coronary artery without angina pectoris; J44.9 Chronic obstructive pulmonary disease, unspecified; E78.00 Pure hypercholesterolemia, unspecified; I10 Essential (primary) hypertension; I71.2 Thoracic aortic aneurysm, without rupture; E27.9 Disorder of adrenal gland, unspecified; C50.919 Malignant neoplasm of unspecified site of unspecified female breast; D69.6 Thrombocytopenia, unspecified; D72.819 Decreased white blood cell count, unspecified; I21.4 Non-ST elevation (NSTEMI) myocardial infarction; I25.2 Old myocardial infarction; I51.3 Intracardiac thrombosis, not elsewhere classified; Z85.3 Personal history of malignant neoplasm of breast; Z87.891 Personal history of nicotine dependence; Z95.1 Presence of aortocoronary bypass graft; Z95.5 Presence of coronary angioplasty implant and graft; Z96.659 Presence of unspecified artificial knee joint
CPT/HCPCS: 36415; 71045; 71275; 80048; 80053; 80061; 81001; 83735; 83880; 84484; 85025; 85379; 85610; 85730; 87040; 93005; 93970; 99284; G0378; J7040; Q9967; G0379

== ENCOUNTER → 2019-02-05 | Outpatient (CLI) | payer OTHER ==
[~2019-02-05] MED LIST: ASPI-630 PO; CALC-30 PO; CHOL100014 PO; FURO-69 PO; METO25TA4 PO; SIMV40TA3 PO; TICA90TA PO; VALS80TA3 PO
--- NOTE | 2019-02-05 15:02 | RAD ---
EXAM: Chest, 2 views. HISTORY: Shortness of breath. COMPARISON: 12/14/2018 FINDINGS: 2 views of chest are obtained. There is no infiltrate, effusion or pneumothorax. The heart is stable in size. There is a stable dilated ascending aorta and tortuous descending aorta. There are surgical clips overlying the right perihilar region. There are also surgical clips within the upper abdomen. There is slight hyperinflation. IMPRESSION: 1. Hyperinflation due to emphysema. 2. Mild cardiomegaly and dilated ascending aorta and tortuous descending aorta. Electronically signed by: Mili Mitchell MD (02/05/2019 2:59 PM) [place] [id number]
== END | disposition home or self-care (01) ==
LOC: RAD 14:27
PROVIDERS: ATTEND Internal Medicine Cardiovascular Disease
DX: J43.9 Emphysema, unspecified (principal); I25.10 Atherosclerotic heart disease of native coronary artery without angina pectoris; E78.5 Hyperlipidemia, unspecified; I51.7 Cardiomegaly
CPT/HCPCS: 36415; 71046; 83880; 85379

== ENCOUNTER 2019-05-28 23:11 | Emergency (ER) | payer MEDICARE, OTHER ==
[~2019-05-28] VITALS: Ht 172.7 cm; Wt 80.0 kg
[~2019-05-28 23:11] MED LIST changes: +SIMV40TA18 PO; -SIMV40TA3 PO
[2019-05-28 23:46] LABS: BASO % 1 % (0-3); EOS % 1 % (0-3); HEMATOCRIT 35.3 % (36.0-47.0); HEMOGLOBIN 11.1 g/dL (12.0-15.5); LYMPH # 1.2 x10^3/uL (1.0-4.8); LYMPH % 15 % (24-48); MEAN CORPUSCULAR HEMOGLOBIN 32 pg (25-35); MEAN CORPUSCULAR HGB CONC 31 g/dL (31-37); MEAN CORPUSCULAR VOLUME 101 fL (79-100); MONO # 0.6 x10^3/uL (0.0-1.1); MONO % 7 % (0-9); NEUT # 6.2 x10^3uL (1.8-7.7); NEUT % 77 % (31-73); PLATELET COUNT 174 x10^3/uL (140-400); RED CELL DISTRIBUTION WIDTH 15.4 % (11.5-14.5)
[2019-05-28 23:52] LABS: CALCIUM 8.3 mg/dL (8.5-10.1); GFR 54.2; POTASSIUM 3.9 mmol/L (3.5-5.1)
[2019-05-28 23:57] LABS: ALBUMIN 3.1 g/dL (3.4-5.0); MAGNESIUM 1.7 mg/dL (1.8-2.4); TOTAL BILIRUBIN 0.3 mg/dL (0.2-1.0); TOTAL PROTEIN 6.2 g/dL (6.4-8.2)
[2019-05-29] MEDS ORDERED: IV NORMAL SALINE 1,000ML 1,000 ML IV ONE
--- NOTE | 2019-05-29 00:51 | PHYS DOC ---
Past History Past Medical History: CAD, Cancer, COPD, High Cholesterol, Hypertension, [place] Additional Past Medical Histor: "leaky heart valve" Past Surgical History: Cholecystectomy, Knee Replacement, Other Additional Past Surgical Histo: Lumpectomy right breast, [address] 11/23/18 Smoking: Cigarettes Alcohol Use: None Drug Use: None Adult General Chief Complaint Chief Complaint: DIARRHEA HPI HPI Patient is a or-year-old female who presents with complaint of bloody diarrhea, abdominal cramping and lightheadedness that started around 8:30 this evening. Patient states that she is had a total of 4 episodes of bloody diarrhea in which she estimates at least a half a cup of blood was passed. She states that it is bright red in color. Patient does have history of metastatic cancer and is concerned about possibility of metastases to the colon based on recent PET scan results. Patient states that when she stands up she gets very dizzy and feels like she is going to pass out. She denies any chest pain or shortness of breath. She also denies any fever.[] Review of Systems Review of Systems Constitutional: Denies fever or chills [] Respiratory: Denies cough or shortness of breath [] Cardiovascular: No additional information not addressed in HPI [] GI: Admits to abdominal cramping with nausea and bloody diarrhea [] Integument: Denies rash or skin lesions [] Neurologic: Denies headache, focal weakness or sensory changes [] All other systems were reviewed and found to be within normal limits, except as documented in this note. Current Medications Current Medications Current Medications Medications (Trade) Dose Ordered Sig/Camille Start Time Stop Time Status Last Admin Dose Admin Sodium Chloride 1,000 ml @ 1,000 mls/hr 1X ONCE 05/29/19 00:00 05/29/19 00:59 05/28/19 23:53 1,000 MLS/HR Allergies Allergies Allergies Coded Allergies Type Severity Reaction Last Updated Verified morphine Allergy Mild 12/14/18 Yes Physical Exam Physical Exam Constitutional: Well developed, well nourished, no acute distress, non-toxic appearance. [] HENT: Normocephalic, atraumatic, bilateral external ears normal, oropharynx dry, no oral exudates, nose normal. [] Eyes: PERRLA, EOMI, conjunctiva normal, no discharge. [] Neck: Normal range of motion, no tenderness, supple, no stridor. [] Cardiovascular: Regular rate and rhythm[] Lungs & Thorax: Bilateral breath sounds clear to auscultation [] Abdomen: Bowel sounds normal, soft, no tenderness. [] Skin: Warm, dry, no erythema, no rash. [] Extremities: No tenderness, no cyanosis, no clubbing, ROM intact. [] Neurologic: Alert and oriented X 3, no focal deficits noted. [] Current Patient Data Vital Signs Vital Signs Date Time Temp Pulse Resp B/P (MAP) Pulse Ox O2 Delivery O2 Flow Rate FiO2 05/28/19 23:20 98.4 78 18 148/65 (92) 99 Room Air Lab Results Laboratory Tests Test 05/28/19 23:20 White Blood Count 8.0 x10^3/uL (4.0-11.0) Red Blood Count 3.50 x10^6/uL (3.50-5.40) Hemoglobin 11.1 g/dL (12.0-15.5) L Hematocrit 35.3 % (36.0-47.0) L Mean Corpuscular Volume 101 fL (79-100) H Mean Corpuscular Hemoglobin 32 pg (25-35) Mean Corpuscular Hemoglobin Concent 31 g/dL (31-37) Red Cell Distribution Width 15.4 % (11.5-14.5) H Platelet Count 174 x10^3/uL (140-400) Neutrophils (%) (Auto) 77 % (31-73) H Lymphocytes (%) (Auto) 15 % (24-48) L Monocytes (%) (Auto) 7 % (0-9) Eosinophils (%) (Auto) 1 % (0-3) Basophils (%) (Auto) 1 % (0-3) Neutrophils # (Auto) 6.2 x10^3uL (1.8-7.7) Lymphocytes # (Auto) 1.2 x10^3/uL (1.0-4.8) Monocytes # (Auto) 0.6 x10^3/uL (0.0-1.1) Eosinophils # (Auto) 0.0 x10^3/uL (0.0-0.7) Basophils # (Auto) 0.0 x10^3/uL (0.0-0.2) Prothrombin Time 11.3 SEC (9.4-11.4) Prothrombin Time INR 1.1 (0.9-1.1) Activated Partial Thromboplast Time 23 SEC (23-33) Sodium Level 142 mmol/L (136-145) Potassium Level 3.9 mmol/L (3.5-5.1) Chloride Level 106 mmol/L (98-107) Carbon Dioxide Level 24 mmol/L (21-32) Anion Gap 12 (6-14) Blood Urea Nitrogen 21 mg/dL (7-20) H Creatinine 1.0 mg/dL (0.6-1.0) Estimated GFR (Cockcroft-Gault) 54.2 BUN/Creatinine Ratio 21 (6-20) H Glucose Level 204 mg/dL (70-99) H Calcium Level 8.3 mg/dL (8.5-10.1) L Magnesium Level 1.7 mg/dL (1.8-2.4) L Total Bilirubin 0.3 mg/dL (0.2-1.0) Aspartate Amino Transferase (AST) 22 U/L (15-37) Alanine Aminotransferase (ALT) 25 U/L (14-59) Alkaline Phosphatase 70 U/L (46-116) Total Protein 6.2 g/dL (6.4-8.2) L Albumin 3.1 g/dL (3.4-5.0) L Albumin/Globulin Ratio 1.0 (1.0-1.7) EKG EKG [] Radiology/Procedures Radiology/Procedures [] Course & Med Decision Making Course & Med Decision Making Pertinent Labs and Imaging studies reviewed. (See chart for details) [] Dragon Disclaimer Dragon Disclaimer This electronic medical record was generated, in whole or in part, using a voice recognition dictation system. Departure Departure: Impression: Primary Impression: Lower GI bleed Disposition: XFER SHT-TRM HOSP Condition: IMPROVED Referrals: NICHELLE SOUZA (PCP) EVA HERMAN Jr. DO May 29, 2019 00:51
[2019-05-29 01:51] LABS: BACTERIA,URINE 0 /HPF (0-FEW); BILIRUBIN,URINE NEG (NEG); CLARITY,URINE CLEAR; COLOR,URINE YELLOW; GLUCOSE,URINE 100 mg/dL (NEG); NITRITE,URINE NEG (NEG); RBC,URINE 0 /HPF (0-2); SQUAMOUS EPITHELIAL CELL,UR OCC /LPF; UROBILINOGEN,URINE 0.2 mg/dL (0.2 mg/dL)
[2019-05-29 02:45] VITALS: BP 115/57
== END 2019-05-29 03:27 | disposition short-term general hospital (02) ==
LOC: ER 23:11
DX: K92.2 Gastrointestinal hemorrhage, unspecified (principal); R19.7 Diarrhea, unspecified; R42 Dizziness and giddiness; R11.0 Nausea; I25.10 Atherosclerotic heart disease of native coronary artery without angina pectoris; F17.210 Nicotine dependence, cigarettes, uncomplicated; J44.9 Chronic obstructive pulmonary disease, unspecified; E78.00 Pure hypercholesterolemia, unspecified; I10 Essential (primary) hypertension; I25.2 Old myocardial infarction; Z90.49 Acquired absence of other specified parts of digestive tract; Z85.9 Personal history of malignant neoplasm, unspecified; Z98.890 Other specified postprocedural states; Z88.6 Allergy status to analgesic agent
CPT/HCPCS: 36415; 80053; 81001; 83735; 85025; 85610; 85730; 96360; 99285-25; J7030

== ENCOUNTER 2019-07-10 22:14 | Observation (INO) | payer MEDICARE ==
[~2019-07-10] VITALS: Ht 172.7 cm; Wt 80.2 kg
[~2019-07-10 22:14] MED LIST changes: -ATOR40TA59 PO; -CLOP75TA57 PO; -FULV250D IM; -IOHEXOL 350 MG/ML 100 ML VIAL. IV ONE; -LORA-254 PO
[2019-07-10] MEDS ORDERED: ASPIRIN 325 MG TABLET PO ONE (23:00)
[2019-07-10 23:02] LABS: BASO % 1 % (0-3); EOS # 0.1 x10^3/uL (0.0-0.7); EOS % 1 % (0-3); HEMATOCRIT 33.5 % (36.0-47.0); HEMOGLOBIN 10.4 g/dL (12.0-15.5); LYMPH # 0.9 x10^3/uL (1.0-4.8); LYMPH % 15 % (24-48); MEAN CORPUSCULAR HEMOGLOBIN 28 pg (25-35); MEAN CORPUSCULAR HGB CONC 31 g/dL (31-37); MEAN CORPUSCULAR VOLUME 91 fL (79-100); MONO # 0.7 x10^3/uL (0.0-1.1); MONO % 12 % (0-9); NEUT # 4.4 x10^3uL (1.8-7.7); NEUT % 72 % (31-73); PLATELET COUNT 160 x10^3/uL (140-400); RED BLOOD COUNT 3.67 x10^6/uL (3.50-5.40); RED CELL DISTRIBUTION WIDTH 17.6 % (11.5-14.5); WHITE BLOOD COUNT 6.1 x10^3/uL (4.0-11.0)
[2019-07-10 23:11] LABS: CALCIUM 9.2 mg/dL (8.5-10.1); CREATININE 0.8 mg/dL (0.6-1.0); GFR 70.1; POTASSIUM 3.6 mmol/L (3.5-5.1)
[2019-07-10 23:27] LABS: ALBUMIN 3.2 g/dL (3.4-5.0); ALBUMIN/GLOBULIN RATIO 1.1 (1.0-1.7); MAGNESIUM 1.8 mg/dL (1.8-2.4); TOTAL BILIRUBIN 0.5 mg/dL (0.2-1.0); TOTAL PROTEIN 6.2 g/dL (6.4-8.2)
--- NOTE | 2019-07-10 23:44 | EKG ---
[address] [address] Test Date: 2019-07-10 Test Time: 22:42:22 Pat Name: DEB HOLLY Department: Room: Gender: F Sailing Master: : 1945 Requested By: LIZ CHRISTIANSON Order Number: [id number] Reading MD: Measurements Intervals [place] Rate: 101 P: 90 [place]: 154 QRS: 77 QRSD: 86 T: 46 QT: 352 QTc: 457 Interpretive Statements SINUS TACHYCARDIA VENTRICULAR PREMATURE COMPLEX(ES), BIGEMINY ABNORMAL ECG RI6.01 No previous ECG available for comparison
[2019-07-11] VITALS (7 sets, daily range): BP systolic 106–139; BP diastolic 54–80
--- NOTE | 2019-07-11 00:28 | PHYS DOC ---
Past History Past Medical History: CAD, Cancer, COPD, High Cholesterol, Hypertension, [place] Additional Past Medical Histor: "leaky heart valve", stage 4 breast CA and stage 3 colon CA Past Surgical History: Cancer Surgery, Cholecystectomy, Knee Replacement, Other Additional Past Surgical Histo: Lumpectomy right breast, [address] 11/23/18 Smoking: Cigarettes Alcohol Use: None Drug Use: None Adult General Chief Complaint Chief Complaint: SHORTNESS OF BREATH HPI HPI 73-year-old female presents with son with report of dyspnea on exertion which is been ongoing for the past few weeks. Reports became worse this evening. Patient was sent by her PCP to obtain a CT angiogram of chest for rule out PE. Patient does have history of recent surgery 4 weeks ago. Denies trauma. Reports bilateral leg swelling; denies calf tenderness. Denies chest pain. Patient reports she feels as if she "can't catch her breath ". Denies known sick contacts. Denies cough. Patient doesn't report recent adjustment of her medications. Reports she was taken off of her daily losartan and Toprol. Patient was also taken off 20 mg of Lasix which given every 3 days. Review of Systems Review of Systems Constitutional: Denies fever or chills Eyes: Denies redness or eye pain HENT: Denies nasal congestion or sore throat Respiratory: Denies cough; reports shortness of breath and dyspnea on exertion Cardiovascular: Denies chest pain or palpitations GI: Denies abdominal pain, nausea, or vomiting : Denies dysuria or hematuria Musculoskeletal: Denies back pain; reports bilateral leg swelling Integument: Denies rash or skin lesions Neurologic: Denies headache, focal weakness or sensory changes Complete systems were reviewed and found to be within normal limits, except as documented in this note. Current Medications Current Medications Current Medications Medications (Trade) Dose Ordered Sig/Camille Start Time Stop Time Status Last Admin Dose Admin Aspirin (Yoandy Aspirin) 325 mg 1X ONCE 07/10/19 23:00 07/10/19 23:01 DC 07/10/19 23:44 325 MG Furosemide (Lasix) 20 mg 1X ONCE 07/11/19 00:30 07/11/19 00:31 07/11/19 00:23 20 MG Lorazepam (Ativan) 0.5 mg 1X ONCE 07/11/19 00:30 07/11/19 00:31 07/11/19 00:23 0.5 MG Allergies Allergies Allergies Coded Allergies Type Severity Reaction Last Updated Verified morphine Allergy Intermediate Itching 07/11/19 Yes Physical Exam Physical Exam Constitutional: Well developed, well nourished, anxious, non-toxic appearance HENT: Normocephalic, atraumatic, oropharynx moist Eyes: PERRL, EOMI, conjunctiva normal, no discharge Neck: Normal range of motion, no tenderness, supple Cardiovascular: Heart rate normal, regular rhythm Lungs & Thorax: Bilateral breath sounds diminished at bases, no wheezing Abdomen: Soft, no tenderness Skin: Warm, dry, no erythema, no rash Extremities: No tenderness, ROM intact, 1+ bilateral edema Neurologic: Alert and oriented X 3, normal motor function, normal sensory function, no focal deficits noted Psychologic: Affect anxious, judgment normal Current Patient Data Vital Signs Vital Signs Date Time Temp Pulse Resp B/P (MAP) Pulse Ox O2 Delivery O2 Flow Rate FiO2 07/10/19 22:20 97.9 55 157/98 (117) 98 Room Air Lab Results Laboratory Tests Test 07/10/19 22:47 White Blood Count 6.1 x10^3/uL (4.0-11.0) Red Blood Count 3.67 x10^6/uL (3.50-5.40) Hemoglobin 10.4 g/dL (12.0-15.5) L Hematocrit 33.5 % (36.0-47.0) L Mean Corpuscular Volume 91 fL (79-100) Mean Corpuscular Hemoglobin 28 pg (25-35) Mean Corpuscular Hemoglobin Concent 31 g/dL (31-37) Red Cell Distribution Width 17.6 % (11.5-14.5) H Platelet Count 160 x10^3/uL (140-400) Neutrophils (%) (Auto) 72 % (31-73) Lymphocytes (%) (Auto) 15 % (24-48) L Monocytes (%) (Auto) 12 % (0-9) H Eosinophils (%) (Auto) 1 % (0-3) Basophils (%) (Auto) 1 % (0-3) Neutrophils # (Auto) 4.4 x10^3uL (1.8-7.7) Lymphocytes # (Auto) 0.9 x10^3/uL (1.0-4.8) L Monocytes # (Auto) 0.7 x10^3/uL (0.0-1.1) Eosinophils # (Auto) 0.1 x10^3/uL (0.0-0.7) Basophils # (Auto) 0.0 x10^3/uL (0.0-0.2) Prothrombin Time 12.5 SEC (9.4-11.4) H Prothrombin Time INR 1.2 (0.9-1.1) H Activated Partial Thromboplast Time 25 SEC (23-33) Sodium Level 144 mmol/L (136-145) Potassium Level 3.6 mmol/L (3.5-5.1) Chloride Level 110 mmol/L (98-107) H Carbon Dioxide Level 24 mmol/L (21-32) Anion Gap 10 (6-14) Blood Urea Nitrogen 15 mg/dL (7-20) Creatinine 0.8 mg/dL (0.6-1.0) Estimated GFR (Cockcroft-Gault) 70.1 BUN/Creatinine Ratio 19 (6-20) Glucose Level 110 mg/dL (70-99) H Calcium Level 9.2 mg/dL (8.5-10.1) Magnesium Level 1.8 mg/dL (1.8-2.4) Total Bilirubin 0.5 mg/dL (0.2-1.0) Aspartate Amino Transferase (AST) Pending Alanine Aminotransferase (ALT) 56 U/L (14-59) Alkaline Phosphatase 232 U/L (46-116) H Creatine Kinase 47 U/L (26-192) Creatine Kinase MB (Mass) 0.8 ng/mL (0.0-3.6) Creatine Kinase MB Relative Index 1.7 % (0-4) Troponin I Quantitative 0.041 ng/mL (0-0.055) TH-Pyh-J-Type Natriuretic Peptide 2458 pg/mL (0-124) H Total Protein 6.2 g/dL (6.4-8.2) L Albumin 3.2 g/dL (3.4-5.0) L Albumin/Globulin Ratio 1.1 (1.0-1.7) Lipase 79 U/L (73-393) EKG EKG @2242 Sinus tachycardia at 101 bpm, NO ST elevation, frequent PVCs Radiology/Procedures Radiology/Procedures OUTPATIENT IMAGING: PROCEDURE: CT ANGIOGRAPHY CHEST CTA scan of the Chest with Contrast (Pulmonary Embolism protocol) 07/10/2019 Clinical History: Shortness of breath. Colon cancer. Recent surgery. Technique: After the intravenous administration of 100 cc of Omnipaque 350, contiguous, 0.625 mm axial sections were obtained through the chest. 2 mm axial and 3D MIP coronal and sagittal reconstructed images were obtained. One or more of the following individualized dose reduction techniques were utilized for this study: 1. Automated exposure control. 2. Adjustment of the mA and/or kV according to patient size. 3. Use of iterative reconstruction technique. Findings: Comparison study is dated 12/14/2018. No filling defect is seen within the major branches of either pulmonary artery. There is no CT evidence of pulmonary embolism. Atherosclerotic calcification of the thoracic aorta and its branches is noted. The thoracic aorta is ectatic and tortuous but tapers normally. The heart is mildly enlarged. Enlarged hilar and mediastinal lymph nodes are again seen which measure 1 to 2.7 cm in size. There are very small bilateral pleural effusions, right greater than left. Dependent subsegmental atelectasis is seen involving both lungs. No area of consolidation is seen. No pneumothorax is noted. Impression: There is no CT evidence of pulmonary embolism. Electronically signed by: Pete Granado MD (07/10/2019 12:02 PM) [facility] [place] Course & Med Decision Making Course & Med Decision Making Pertinent Labs and Imaging studies reviewed. (See chart for details) Patient reports shortness of air with dyspnea on exertion which is been ongoing since recent adjustment of her medication. Patient denies any fever or chills. History of outpatient CTA chest without findings consistent for PE but noted bilateral pleural effusions. EKG stable. Labs obtained and posted to chart. Troponin within normal limits. BNP elevated. Patient also appears very anxious. Ativan provided. Empiric Lasix also given. Patient requiring admission for further evaluation and treatment. Discussed with Dr. Jaramillo (hospitalist) who is in agreement with admission. Cardiology consult ordered. Discussed findings and plan with patient and family, who acknowledge understanding and agreement. Dragon Disclaimer Dragon Disclaimer This electronic medical record was generated, in whole or in part, using a voice recognition dictation system. Departure Departure: Impression: Primary Impression: Dyspnea Additional Impressions: Pleural effusion Elevated brain natriuretic peptide (BNP) level Anxiety Disposition: ADMITTED INPATIENT Admitting Physician: Randy Jaramillo Condition: STABLE Referrals: NICHELLE SOUZA (PCP) Problem Qualifiers Primary Impression: Dyspnea Dyspnea type: unspecified Qualified Codes: R06.00 - Dyspnea, unspecified LIZ CHRISTIANSON DO Jul 11, 2019 00:28
[2019-07-11] MEDS ORDERED: FUROSEMIDE 40 MG/4 ML VIAL IVP ONE (00:30)
[2019-07-11] MEDS ORDERED: LORazepam 1 MG TABLET PO ONE (00:30)
[2019-07-11] MEDS ORDERED: ATOR40TA59 PO (03:39)
[2019-07-11] MEDS ORDERED: CLOP75TA57 PO (03:39)
[2019-07-11] MEDS ORDERED: FULV250D IM (07:56)
--- NOTE | 2019-07-11 09:22 | PDOC2 ---
CARDIAC CONSULT DATE OF CONSULT Date Of Consult DATE: 07/11/19 TIME: 09:20 REASON FOR CONSULT Reason for Consult Dyspnea Concerns for CHF REFERRING PHYSICIAN Referring Physician Dr. Thomas SOURCE Source: Chart review, Patient HPI History of Present Illness This is a 73 yo female who presented secondary to shortness of breath. Has has intermittent shortness of breath since having colectomy 06/11/19. Over the last 3 days, has been progressive. Associated with mild LE edema. No chest pain, palpitations, dizziness, diaphoresis, or nausea/vomiting. SOA has improved with IV lasix/diuresis overnight. Also noted to be mildly bradycardia, which she reports as baseline. PAST MEDICAL HISTORY Cardiovascular: CAD, CHF, HTN, hyperipidemia Pulmonary: COPD, Other (SOLOMON) Heme/Onc: Cancer (breast, colorectal) Psych: Anxiety PAST SURGICAL HISTORY Past Surgical History: Cholecystectomy, Total knee replacement (right ), Colectomy FAMILY HISTORY Family History: Hypertension SOCIAL HISTORY Smoke: No ALCOHOL: none Drugs: None Lives: with Family CURRENT MEDICATIONS Current Medications Current Medications Aspirin (Yoandy Aspirin) 325 mg 1X ONCE PO Last administered on 07/10/19at 23:44; Start 07/10/19 at 23:00; Stop 07/10/19 at 23:01; Status DC Furosemide (Lasix) 20 mg 1X ONCE IVP Last administered on 07/11/19at 00:23; Start 07/11/19 at 00:30; Stop 07/11/19 at 00:31; Status DC Lorazepam (Ativan) 0.5 mg 1X ONCE PO Last administered on 07/11/19at 00:23; Start 07/11/19 at 00:30; Stop 07/11/19 at 00:31; Status DC Active Scripts Active Reported Faslodex (Fulvestrant) 250 Mg/5 Ml Disp.syrin 250 Mg IM QMONTH Plavix (Clopidogrel Bisulfate) 75 Mg Tablet 1 Tab PO DAILY 30 Days Atorvastatin Calcium 40 Mg Tablet 1 Tab PO QHS Calcium 500 + Vit D 400 Tablet (Calcium Carbonate/Vitamin D3) 1 Each Tablet 2 Each PO DAILY Vitamin D3 (Cholecalciferol (Vitamin D3)) 1,000 Unit Capsule 1,000 Unit PO DAILY Lasix (Furosemide) 20 Mg Tablet 1 Tab PO QMWF Aspirin 81 Mg Tab.chew 81 Mg PO HS ALLERGIES Allergies: Coded Allergies: morphine (Verified Allergy, Intermediate, Itching, 07/11/19) ROS Review of Systems 14 point ROS conducted with pertinent positives noted above in HPI PHYSICAL EXAM General: Alert, Oriented X3, Cooperative, No acute distress HEENT: Atraumatic, Mucous membr. moist/pink Lungs: Clear to auscultation, Other (diminished ) Heart: Other (SR/SB. Lowest 37. No pauses) Abdomen: Soft, Other (ostomy ) Extremities: Other (trace bilateral LE edema ) Skin: No breakdown Neuro: Normal speech, Sensation intact Psych/Mental Status: Mental status NL, Mood NL MUSCULOSKELETAL: Osteoarthritic changes both hands VITALS Vital Signs Vital Signs Date Time Temp Pulse Resp B/P (MAP) Pulse Ox O2 Delivery O2 Flow Rate FiO2 07/11/19 08:05 Nasal Cannula 1.0 07/11/19 08:04 50 19 139/74 (95) 95 07/11/19 05:18 97.6 LABS LABS Laboratory Tests Test 07/10/19 22:47 07/11/19 03:25 07/11/19 06:04 White Blood Count 6.1 x10^3/uL (4.0-11.0) Red Blood Count 3.67 x10^6/uL (3.50-5.40) Hemoglobin 10.4 g/dL (12.0-15.5) Hematocrit 33.5 % (36.0-47.0) Mean Corpuscular Volume 91 fL (79-100) Mean Corpuscular Hemoglobin 28 pg (25-35) Mean Corpuscular Hemoglobin Concent 31 g/dL (31-37) Red Cell Distribution Width 17.6 % (11.5-14.5) Platelet Count 160 x10^3/uL (140-400) Neutrophils (%) (Auto) 72 % (31-73) Lymphocytes (%) (Auto) 15 % (24-48) Monocytes (%) (Auto) 12 % (0-9) Eosinophils (%) (Auto) 1 % (0-3) Basophils (%) (Auto) 1 % (0-3) Neutrophils # (Auto) 4.4 x10^3uL (1.8-7.7) Lymphocytes # (Auto) 0.9 x10^3/uL (1.0-4.8) Monocytes # (Auto) 0.7 x10^3/uL (0.0-1.1) Eosinophils # (Auto) 0.1 x10^3/uL (0.0-0.7) Basophils # (Auto) 0.0 x10^3/uL (0.0-0.2) Prothrombin Time 12.5 SEC (9.4-11.4) Prothromb Time International Ratio 1.2 (0.9-1.1) Activated Partial Thromboplast Time 25 SEC (23-33) Sodium Level 144 mmol/L (136-145) Potassium Level 3.6 mmol/L (3.5-5.1) Chloride Level 110 mmol/L (98-107) Carbon Dioxide Level 24 mmol/L (21-32) Anion Gap 10 (6-14) Blood Urea Nitrogen 15 mg/dL (7-20) Creatinine 0.8 mg/dL (0.6-1.0) Estimated GFR (Cockcroft-Gault) 70.1 BUN/Creatinine Ratio 19 (6-20) Glucose Level 110 mg/dL (70-99) Calcium Level 9.2 mg/dL (8.5-10.1) Magnesium Level 1.8 mg/dL (1.8-2.4) Total Bilirubin 0.5 mg/dL (0.2-1.0) Aspartate Amino Transf (AST/SGOT) 38 U/L (15-37) Alanine Aminotransferase (ALT/SGPT) 56 U/L (14-59) Alkaline Phosphatase 232 U/L (46-116) Creatine Kinase 47 U/L (26-192) Creatine Kinase MB (Mass) 0.8 ng/mL (0.0-3.6) Creatine Kinase MB Relative Index 1.7 % (0-4) Troponin I Quantitative 0.041 ng/mL (0-0.055) 0.050 ng/mL (0-0.055) 0.047 ng/mL (0-0.055) LN-Bvk-U-Type Natriuretic Peptide 2458 pg/mL (0-124) Total Protein 6.2 g/dL (6.4-8.2) Albumin 3.2 g/dL (3.4-5.0) Albumin/Globulin Ratio 1.1 (1.0-1.7) Lipase 79 U/L (73-393) ECHOCARDIOGRAM Echocardiogram <Conclusion> The left ventricle is normal size. The left ventricular systolic function is normal and the ejection fraction is within normal range. The Ejection Fraction is 55-60%. There is no significant aortic valvular stenosis. Doppler and Color Flow revealed trace aortic regurgitation. Doppler and Color-flow revealed mild mitral regurgitation. Doppler and Color Flow revealed mild tricuspid regurgitation. The PA pressure was estimated at 33 mmHg. The ascending aorta is moderately dilated at 4.0 cm. DATE: 11/22/18 1354 Conclusion * Left Ventricle: Normal size. Concentric remodeling. Normal ejection fraction with LVEF=70%. No segmental wall motion abnormalities. * Right Ventricle: Normal ejection fraction. Mildly dilated. * Right Atrium: Mildly dilated. * Non-specific thickening of both mitral leaflets. There is moderate prolapse of the middle scallop (P2) of the posterior mitral leaflet. At least moderate regurgitation. The jet is anteriorly directed. * Tricuspid Valve: Normal valve structure. No stenosis. Moderate regurgitation. * Estimated Peak Systolic PA Pressure 65 mmHg * No pericardial effusion. * Compared with prior study dated 06/2018, the PASP estimate has increased from 41-->65mmHg. * Consider JESSICA for further assessment of mitral regurgitation, if clinically indicated. 06/13/19 - 2-D + DOPPLER ECHOCARDIOGRAM STRESS TEST Stress Test SUMMARY/OPINION: This study is slightly abnormal but with no evidence of significant myocardial ischemia. There is fixed attenuation of the distal anteroapical segment possibly due to her recent infarct although there is no corresponding wall motion abnormality. Left ventricular systolic function is normal. There are no high risk prognostic indicators present. The pharmacologic ECG portion of the study is negative for ischemia. Comparison is made with a prior study completed 2012. Ejection fraction was 68%. There are no significant changes. The distal anterior changes then were attributed to breast attenuation. In aggregate the current study is low risk in regards to predicted annual cardiovascular mortality rate. 01/15/19 - Procedure: D-SPECT MULTI GATED THALLIUM REGADENOSON MPI STRESS TEST HEART CATH Heart Cath CORONARY ANGIOGRAPHY: LM is a large caliber vessel with a distal 10% stenosis. LAD is a large caliber vessel with a mid 70% stenosis. D1 is a moderate caliber vessel with an ostial 50% stenosis. LCx is a large caliber co-dominant vessel with a mid hazy 80% stenosis and post- stenotic dilation. OM1 is a moderate caliber vessel with normal angiographic appearance. LPL1 is a moderate caliber vessel with mild luminal irregularities. RCA is a moderate sized codominant vessel with a proximal to mid diffuse 80% stenosis. RPDA is a moderate caliber vessel with normal angiographic appearance. Conclusion 1. Elevated left sided filling pressures with an LVEDP of 21 mm Hg 2. Three vessel coronary disease. 3. Ascending aortic aneurysm. Recommendations Evalaution of of high risk CABG+aneurysm repair versus PCI DATE: 11/22/18 1202 Conclusion 1. Successful complex PCI of the mid circumflex and LAD with implantation of a 4 x 18 mm Latisha and a 3.5 mm bx 12 Alpine ARYAN, respectively. Recommendations ASA 81mg daily Ticagrelor 90mg bid Cardiac rehab referral High dose statin therapy Consider outpt PCI of the RCA depending symptoms. DATE: 11/26/18 1349 ASSESSMENT/PLAN Assessment/Plan 1. Dyspnea with acute on chronic CHF; improved with IV Lasix. Echo 10/2018 with preserved LV systolic function. 2. 3V CAD; s/p PCI/stent to the LCx and LAD 07/2018. RCA with proximal to mid diffuse 80% stenosis at that time as noted above. Follows with Dr. Ramírez with [facility]. MPI 12/2018 without evidence of significant ischemia. Echo last month with preserved LV systolic function 3. Trivial troponin elevation; highest 0.05. Most probably type II, demand ischemia. CP free. Underwent colectomy 06/11 and tolerated well. 4. Hypertension; controlled 5. Hyperlipidemia; statin 6. Bradycardia, sinus. No pauses or syncope. Noted with bigeminal PVC's. Reviewed [facility] records, HR has consistently been in the mid to upper 50's recently per vital sign records. Recommendations Mild diuresis Resume secondary prevention measures. No BB with bradycardia Repeat BMP, Mg to ensure electrolytes are WNL TSH Consider outpatient event monitor Follow up with primary projection printer, Dr. Ramírez next Monday as previously scheduled. KINGS QUIÑONES APRN Jul 11, 2019 09:22
[2019-07-11] MEDS: CLOPIDOGREL BISULFATE 75 MG TABLET PO SCH (10:00)
[2019-07-11] MEDS ORDERED: FUROSEMIDE 20 MG/2 ML VIAL IVP ONE (11:15)
[2019-07-11 11:18] LABS: CALCIUM 9.1 mg/dL (8.5-10.1); CREATININE 0.8 mg/dL (0.6-1.0); GFR 70.1; MAGNESIUM 1.8 mg/dL (1.8-2.4); POTASSIUM 3.7 mmol/L (3.5-5.1)
[2019-07-11 12:59] LABS: FREE T4 1.4 ng/dL (0.76-1.46); THYROID STIM HORMONE (TSH) 0.266 uIU/mL (0.358-3.740)
[2019-07-11] MEDS ORDERED: LORazepam 0.5 MG TABLET PO PRN (17:45)
--- NOTE | 2019-07-11 18:36 | HP ---
ADMIT DATE: 07/11/2019 HISTORY OF PRESENT ILLNESS: The patient is a 73-year-old female patient who came to the Emergency Room with her son complaining of dyspnea on exertion, which has been ongoing for the last few weeks. She reports that it became worse yesterday evening. She was seen by her primary care physician and was sent today at this hospital and has had a CT angiogram of the chest to rule out PE. The patient does have history of recent surgery about 4 weeks ago. Specifically, she had surgery on 06/11/2019, where she underwent partial colectomy for colon cancer. Apparently, she lost a lot of blood and she received a total of 3-4 units of packed RBCs during surgery and after. She apparently started complaining of shortness of breath since then, but she received her last fulvestrant or Faslodex on 07/02/2019 and since then apparently her shortness of breath has worsened. She denied any chest pain. She has cough, which is mostly dry. Denied any phlegm or hemoptysis. Denied any chest pain, denied any orthopnea or paroxysmal nocturnal dyspnea. Denied any chills, rigors or fever. She was evaluated in the Emergency Room. Her lab work showed that her BNP was high at 2458. Her white cell count was normal and in fact her H and H was 10.4 and 33.5, her platelets were normal and her manual differential was normal. Her coagulations were also within normal range. She has had CT angio of the chest yesterday, which showed that the patient has no filling defects seen within the major branches of either pulmonary artery. There is no CT evidence of pulmonary embolism, atherosclerotic calcification of thoracic aorta and its branches noted. The thoracic aorta is ectatic and tortuous, but tapers normally. The heart is mildly enlarged, enlarged hilar mediastinal lymph nodes are again seen which measure 1-2.7 cm in size. There are very small bilateral pleural effusions, right greater than left. Dependent subsegmental atelectasis seen involving both lungs. No area of consolidation seen. No pneumothorax is noted. The patient was treated with IV Lasix and was admitted for further evaluation and treatment. PAST MEDICAL HISTORY: Significant for hypertension, hyperlipidemia, coronary artery disease status post myocardial infarction, status post PCI with stent deployment x 2. She has also chronic obstructive pulmonary disease, colon cancer and breast cancer. She is also known to have obstructive sleep apnea and anxiety. PAST SURGICAL HISTORY: Significant for right breast lumpectomy, PCI with stent deployment, partial colectomy, cholecystectomy, right total hip arthroplasty, bilateral femoral endarterectomy. FAMILY HISTORY: She has 1 brother younger and 1 sister younger. Her brother has atrial fibrillation and sister has knee replacement. Her parents are hypertensive. SOCIAL HISTORY: She is and lives with her . She has 2 sons and 1 daughter. She continued to smoke about 5 cigarettes a day. She does not drink alcohol; however, she uses marijuana occasionally. 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 ALLERGIES: SHE IS ALLERGIC TO MORPHINE WELL OXYCODONE. MEDICATIONS: She is currently on following medications: She is on fulvestrant 250 mg per 5 mL once a month, Plavix 75 mg once a day, atorvastatin calcium 40 mg at bedtime, aspirin 81 mg once a day, calcium carbonate with vitamin D3 two tablets daily and furosemide 20 mg every Monday, Monday, Monday. She is also on cholecalciferol Vitamin D3 1000 international units once daily. REVIEW OF SYSTEMS: She has cataracts, but does not require surgical intervention. She denied any blurring of vision, glaucoma or macular degeneration. Denied any earache, tinnitus or sensorineural deafness. Denied any nosebleeds, stuffy nose or postnasal drip. Denied any sore throat, sore tongue, toothache, hoarseness of voice or difficulty swallowing. Denied nausea, vomiting, diarrhea or constipation. Denied any hematemesis, melena or hematochezia. Denied any dysuria, frequency or hematuria. Denied any chest pain. Did complain of shortness of breath, but denied any orthopnea or paroxysmal nocturnal dyspnea. Denied any cough, phlegm or hemoptysis. PHYSICAL EXAMINATION: GENERAL: On arrival to the Emergency Room, she was tachypneic. She is slightly pale, but no jaundice, cyanosis or thyromegaly. No jugular venous distention. No lower limb edema. VITAL SIGNS: Her heart rate was 56, blood pressure was 157/98, temperature was 97.9, respiratory rate was 55 and oxygen saturation was 98%. HEAD, EYES, EARS, NOSE AND THROAT: Showed normocephalic, atraumatic. NECK: Supple. HEART: Showed normal first and second heart sounds. No gallop or murmur. CHEST: Shows central trachea, equally reduced expansion, reduced air entry, vesicular sounds with crepitation mostly in the left side posteriorly. I could not appreciate any rhonchi. ABDOMEN: Distended, soft, nontender. No guarding or rigidity. No organomegaly. All hernial orifices intact. Bowel sounds normal. NEUROLOGIC: She is awake, alert, responding appropriately. All cranial nerves intact. EXTREMITIES: She moves extremities without difficulty. Examination of the extremities showed no clubbing, cyanosis or edema. LABORATORY WORK: Her lab work on arrival showed a white cell count of 6100, hemoglobin 10.4, hematocrit 33.5, MCV 91, and platelet count of 160,000. Her serum sodium was 144, potassium 3.6, chloride 110, bicarbonate 24, anion gap of 10, BUN 15, creatinine 0.8, estimated GFR was 70 mL per minute. Her glucose 110, calcium was 9.2, magnesium was 1.8. Total bilirubin is normal. AST and alkaline phosphatase are elevated. ALT was normal. Her first set of cardiac enzymes showed troponin to be less than 0.041. Her BNP was 2458. Total protein was 6.2, albumin 3.2. ASSESSMENT AND PLAN: The patient was admitted to do 2 more sets of cardiac enzyme and to consult the Cardiology team. She has actually 2 more sets of cardiac enzymes showed troponin to be less than 0.05 and less than 0.047 and she was seen by the Cardiology team and their impression was the patient has dyspnea due to acute on chronic congestive heart failure. Her echocardiogram showed preserved left ventricular systolic function. She has 3-vessel coronary artery disease, status post PCI and stent deployment to the left circumflex, left anterior descending and right coronary artery. She also did have an MPI done on 01/26/2019, which showed no evidence of significant ischemia. An echocardiogram done last month showed preserved left ventricular systolic function. She has trivial troponin elevation, felt to be type 2 demand ischemia. She is chest pain free. She has hypertension that seems to be actually well controlled that her antihypertensive medications were discontinued. Hyperlipidemia, for which she is on statin. Bradycardia seemed to be sinus. Looking at the medication that her fulvestrant seems to be also induces this, especially she stated that her symptom has worsened since she got her last injection on 07/02/2019. AHMED M. USAMA, MD DR: ALIVIA/seth JOB#: [id number] / [id number]
[2019-07-11] MEDS: ASPIRIN 81 MG TAB.CHEW PO SCH (21:59)
[2019-07-11] MEDS: LORazepam 0.5 MG TABLET PO PRN (21:59)
[2019-07-11] MEDS: ATORVASTATIN CALCIUM 20 MG TABLET PO SCH (22:00)
[2019-07-12 05:23] VITALS: BP 101/66
[2019-07-12 06:37] LABS: HEMATOCRIT 33.3 % (36.0-47.0); HEMOGLOBIN 10.2 g/dL (12.0-15.5); RED BLOOD COUNT 3.61 x10^6/uL (3.50-5.40); RED CELL DISTRIBUTION WIDTH 18.2 % (11.5-14.5); WHITE BLOOD COUNT 5.2 x10^3/uL (4.0-11.0)
[2019-07-12 06:54] LABS: ALBUMIN 3.1 g/dL (3.4-5.0); ALBUMIN/GLOBULIN RATIO 1.1 (1.0-1.7); CALCIUM 8.5 mg/dL (8.5-10.1); CREATININE 0.9 mg/dL (0.6-1.0); GFR 61.2; POTASSIUM 3.8 mmol/L (3.5-5.1); TOTAL BILIRUBIN 0.5 mg/dL (0.2-1.0)
[2019-07-12] MEDS: CLOPIDOGREL BISULFATE 75 MG TABLET PO SCH (09:45)
[2019-07-12 10:28] VITALS: BP 118/61
[2019-07-12 15:12] VITALS: BP 114/69
[2019-07-12] MEDS ORDERED: POTASSIUM CHLORIDE 20 MEQ TABLET.ER. PO ONE (17:00)
[2019-07-12] MEDS: FUROSEMIDE 20 MG/2 ML VIAL IVP SCH (18:06)
[2019-07-12 19:20] VITALS: BP 146/65
[2019-07-12] MEDS: LORazepam 0.5 MG TABLET PO PRN (21:59)
[2019-07-12] MEDS: ATORVASTATIN CALCIUM 20 MG TABLET PO SCH (21:59)
[2019-07-12] MEDS: ASPIRIN 81 MG TAB.CHEW PO SCH (21:59)
[2019-07-12 22:07] VITALS: BP 128/62
[2019-07-13 08:29] LABS: CALCIUM 8.5 mg/dL (8.5-10.1); CREATININE 0.8 mg/dL (0.6-1.0); GFR 70.1; MAGNESIUM 1.9 mg/dL (1.8-2.4); POTASSIUM 3.8 mmol/L (3.5-5.1)
--- NOTE | 2019-07-13 08:30 | PN ---
DATE: 07/12/2019 SUBJECTIVE: The patient is sitting comfortably in her chair, in no apparent respiratory distress. She is doing generally better. She had a shower today and she has been able to walk, but continued to have shortness of breath. PHYSICAL EXAMINATION: GENERAL: When I examined her this afternoon, she looked slightly pale, but no jaundice, cyanosis or thyromegaly. No jugular venous distention. No limb edema. VITAL SIGNS: Her heart rate was 51, blood pressure was 114/69, temperature 98.2, respiratory rate was 20, and oxygen saturation was 98%. HEAD, EYES, EARS, NOSE AND THROAT: Normocephalic, atraumatic. NECK: Supple. HEART: Showed normal first and second heart sounds. No gallop or murmur. CHEST: Shows central trachea, equal bilateral expansion, air entry, vesicular sounds. No crepitation or rhonchi. ABDOMEN: Distended, soft, nontender. NEUROLOGIC: She was awake, alert, responding appropriately. All cranial nerves intact. She moves extremities without difficulty. She ambulates with a walker. Her intake over the last 24 hours was 1118. No output was recorded. LABORATORY DATA: Her white cell count was 5200, hemoglobin 10, hematocrit 33, MCV 92, and platelet count of 154,000. Serum sodium was 146, potassium 3.8, chloride 110, bicarbonate 26, anion gap of 10, BUN 17, creatinine 0.9, estimated GFR was 61 mL per minute. Her glucose was 99, calcium was 8.5. Total bilirubin, AST, ALT were normal. Alkaline phosphatase slightly elevated. Total protein was 6, albumin 3.1. ASSESSMENT: 1. The patient continued to complain of shortness of breath, felt to be due to acute on chronic congestive heart failure. I will continue with IV Lasix. 2. She has 3-vessel coronary artery disease, status post PCI and stent deployment to left circumflex and left anterior descending. Her right coronary artery with proximal to mid diffuse 80% stenosis at the time. She apparently has had an MPI in 12/2018 showed no evidence of significant ischemia. Echo last month showed preserved left ventricular systolic function. Has trivial troponin elevation, felt to be type 2 demand ischemia. She has no chest pain. Hypertension, well controlled. Hyperlipidemia, on statin. She had bradycardia, sinus, no pauses or syncope. The transit mixer operator recommended avoidance of beta blockers with bradycardia. Although her TSH was extremely low, her free T4 and free T3 were within normal range. PLAN: My plan is to continue with IV Lasix. We will arrange for a 6-minute walk tomorrow and we will discharge her home tomorrow on oxygen if qualifies and also Ativan to follow with her primary transit mixer operator. NAYELI FORRESTER MD DR: ALIVIA/seth JOB#: [id number] / [id number]
[2019-07-13] MEDS: CLOPIDOGREL BISULFATE 75 MG TABLET PO SCH (09:00)
[2019-07-13] MEDS: FUROSEMIDE 20 MG/2 ML VIAL IVP SCH (09:00)
[2019-07-13] MEDS ORDERED: LORA-254 PO (11:07)
--- NOTE | 2019-07-13 12:06 | DS ---
DATE OF DISCHARGE: 07/13/2019 HOSPITAL COURSE: The patient is sitting at the edge of the bed comfortably in no apparent distress. On questioning her, she stated she is feeling much improved, has had no more shortness of breath. She has slept very well last night. She has a 6-minute walk and her oxygen saturation remained around 94% on room air. PHYSICAL EXAMINATION: GENERAL: When I examined her, she looked somewhat pale, but no jaundice, cyanosis, or thyromegaly. No jugular venous distension. No limb edema. VITAL SIGNS: Her heart rate was 52, blood pressure was 128/62, temperature 97.4, respiratory rate 20, and oxygen saturation was 94%. HEAD, EYES, EARS, NOSE AND THROAT: Showed normocephalic, atraumatic. NECK: Supple. HEART: Showed normal first and second heart sounds. No gallop or murmur. CHEST: Showed central trachea, equal bilateral expansion, air entry, vesicular sounds. No crepitation or rhonchi. ABDOMEN: Distended, soft, nontender. NEUROLOGIC: She is awake, alert, responding appropriately. All cranial nerves intact. EXTREMITIES: She moves extremities without difficulty. She ambulates with a walker. Her intake over the last 24 hours was 1200, no output was recorded. LABORATORY DATA: This morning showed a serum sodium 146, potassium 3.8, chloride 110, bicarbonate 25, anion gap of 11, BUN 15, creatinine 0.8, estimated GFR was 70 mL per minute. Her glucose was 91, calcium was 8.5, magnesium was 1.9. Her white cell count was 5200, hemoglobin 10, hematocrit 33, MCV 92, and platelet count 254,000. Her prothrombin time, INR and aPTT are all normal. DISCHARGE MEDICATIONS: She was discharged home to continue on lorazepam 0.5 mg 4 times a day, aspirin 81 mg once a day, atorvastatin calcium 40 mg at bedtime. She is on calcium carbonate with vitamin D3 two tablets once a day, cholecalciferol for vitamin D3 1000 units once a day, Plavix 75 mg once a day, fulvestrant for Faslodex 250 mg once a month for breast cancer and furosemide 20 mg on Monday, Monday, and Monday for heart failure. FINAL DISCHARGE DIAGNOSES: 1. Exertional dyspnea likely due to acute on chronic diastolic congestive heart failure. Her most recent echocardiogram showed that she has preserved left ventricular systolic function. 2. She has 3-vessel coronary artery disease, status post PCI with stent deployment to left circumflex and left anterior descending. 3. Well elevation of troponin, felt to be most likely type 2 demand ischemia. 4. Hypertension, well controlled. 5. Hyperlipidemia, on statin. 6. Bradycardia, sinus. No pauses and syncope. The patient was advised to follow with her primary care physician as well as her primary batch plant operator. NAYELI FORRESTER MD DR: ALIVIA/seth JOB#: [id number] / [id number]
== END 2019-07-13 11:45 | disposition home or self-care (01) ==
LOC: ER 22:14 → 1 SOUTH 07-11 00:15 → INTOOBSV 07-11 00:15
PROVIDERS: ADMIT Internal Medicine; ATTEND Internal Medicine
DX: E78.00 Pure hypercholesterolemia, unspecified (principal); E78.5 Hyperlipidemia, unspecified; F12.90 Cannabis use, unspecified, uncomplicated; F17.210 Nicotine dependence, cigarettes, uncomplicated; F41.9 Anxiety disorder, unspecified; I11.0 Hypertensive heart disease with heart failure; I24.8 Other forms of acute ischemic heart disease; I50.33 Acute on chronic diastolic (congestive) heart failure; I25.10 Atherosclerotic heart disease of native coronary artery without angina pectoris; I25.2 Old myocardial infarction; I49.3 Ventricular premature depolarization; I77.810 Thoracic aortic ectasia; J44.9 Chronic obstructive pulmonary disease, unspecified; J98.11 Atelectasis; Z82.49 Family history of ischemic heart disease and other diseases of the circulatory system; Z85.038 Personal history of other malignant neoplasm of large intestine; Z85.3 Personal history of malignant neoplasm of breast; Z90.49 Acquired absence of other specified parts of digestive tract; Z95.5 Presence of coronary angioplasty implant and graft; Z96.643 Presence of artificial hip joint, bilateral; Z96.651 Presence of right artificial knee joint
CPT/HCPCS: 36415; 80048; 80053; 80061; 82553; 83690; 83735; 83880; 84439; 84443; 84481; 84484; 85025; 85027; 85610; 85730; 93005; 94618; 96374; 99285; G0378; G0379; J1940

== ENCOUNTER → 2019-07-10 | Outpatient (CLI) | payer MEDICARE ==
[~2019-07-10] MED LIST changes: +ATOR40TA59 PO; +CLOP75TA57 PO; +FULV250D IM; +IOHEXOL 350 MG/ML 100 ML VIAL. IV ONE; +LORA-254 PO
--- NOTE | 2019-07-10 12:04 | RAD ---
CTA scan of the Chest with Contrast (Pulmonary Embolism protocol) 07/10/2019 Clinical History: Shortness of breath. Colon cancer. Recent surgery. Technique: After the intravenous administration of 100 cc of Omnipaque 350, contiguous, 0.625 mm axial sections were obtained through the chest. 2 mm axial and 3D MIP coronal and sagittal reconstructed images were obtained. One or more of the following individualized dose reduction techniques were utilized for this study: 1. Automated exposure control. 2. Adjustment of the mA and/or kV according to patient size. 3. Use of iterative reconstruction technique. Findings: Comparison study is dated 12/14/2018. No filling defect is seen within the major branches of either pulmonary artery. There is no CT evidence of pulmonary embolism. Atherosclerotic calcification of the thoracic aorta and its branches is noted. The thoracic aorta is ectatic and tortuous but tapers normally. The heart is mildly enlarged. Enlarged hilar and mediastinal lymph nodes are again seen which measure 1 to 2.7 cm in size. There are very small bilateral pleural effusions, right greater than left. Dependent subsegmental atelectasis is seen involving both lungs. No area of consolidation is seen. No pneumothorax is noted. Impression: There is no CT evidence of pulmonary embolism. Electronically signed by: Pete Granado MD (07/10/2019 12:02 PM) [facility] [place]
== END | disposition home or self-care (01) ==
LOC: CT 10:48
PROVIDERS: ATTEND Internal Medicine Hematology & Oncology
DX: J90 Pleural effusion, not elsewhere classified (principal); I77.810 Thoracic aortic ectasia; I51.7 Cardiomegaly; I70.0 Atherosclerosis of aorta; J98.11 Atelectasis; Q25.46 Tortuous aortic arch
CPT/HCPCS: 71275; Q9967

== ENCOUNTER 2020-12-28 21:01 | Emergency (ER) | payer MEDICARE ==
[~2020-12-28] VITALS: Ht 172.7 cm; Wt 80.2 kg
[~2020-12-28 21:01] MED LIST changes: +ATOR40TA59 PO; +CLOP75TA57 PO; +FULV250D IM; +LORA-254 PO
[2020-12-28 22:43] LABS: BILIRUBIN,URINE NEG (NEG); CLARITY,URINE CLEAR; COLOR,URINE YELLOW; GLUCOSE,URINE 100 mg/dL (NEG); NITRITE,URINE NEG (NEG); UROBILINOGEN,URINE 0.2 mg/dL (0.2 mg/dL)
[2020-12-28 22:45] LABS: BACTERIA,URINE 0 /HPF (0-FEW); WBC,URINE 0 /HPF (0-4)
[2020-12-28 23:13] LABS: BASO % 1 % (0-3); EOS # 0.1 x10^3/uL (0.0-0.7); EOS % 2 % (0-3); HEMATOCRIT 43.5 % (36.0-47.0); HEMOGLOBIN 14.6 g/dL (12.0-15.5); LYMPH # 1.4 x10^3/uL (1.0-4.8); LYMPH % 21 % (24-48); MEAN CORPUSCULAR HEMOGLOBIN 36 pg (25-35); MEAN CORPUSCULAR HGB CONC 34 g/dL (31-37); MEAN CORPUSCULAR VOLUME 107 fL (79-100); MONO # 0.7 x10^3/uL (0.0-1.1); MONO % 11 % (0-9); NEUT # 4.2 x10^3uL (1.8-7.7); NEUT % 66 % (31-73); PLATELET COUNT 157 x10^3/uL (140-400); RED BLOOD COUNT 4.07 x10^6/uL (3.50-5.40); RED CELL DISTRIBUTION WIDTH 14.4 % (11.5-14.5); WHITE BLOOD COUNT 6.5 x10^3/uL (4.0-11.0)
[2020-12-28 23:19] LABS: CALCIUM 8.6 mg/dL (8.5-10.1); CREATININE 0.8 mg/dL (0.6-1.0); GFR 69.7; POTASSIUM 3.5 mmol/L (3.5-5.1)
[2020-12-28 23:24] LABS: ALBUMIN 3.4 g/dL (3.4-5.0); ALBUMIN/GLOBULIN RATIO 1.1 (1.0-1.7); TOTAL BILIRUBIN 0.4 mg/dL (0.2-1.0); TOTAL PROTEIN 6.4 g/dL (6.4-8.2)
--- NOTE | 2020-12-28 23:50 | PHYS DOC ---
Past History Past Medical History: CAD, Cancer, COPD, High Cholesterol, Hypertension, MA Additional Past Medical Histor: "leaky heart valve", stage 4 breast CA and stage 3 colon CA Past Surgical History: Cancer Surgery, Cholecystectomy, Knee Replacement, Other Additional Past Surgical Histo: Lumpectomy right breast, [address] 11/23/18 Smoking: Cigarettes Alcohol Use: None Drug Use: None General Adult EDM: Chief Complaint: SHORTNESS OF BREATH HPI: HPI: ". I ve had some increased shortness of breath.." Patient is a 75 year old female who presents with above hx and complaints of increased shortness of breath. Patient has significant past medical history of coronary artery disease, COPD, both breast and colon cancer, hypertension, MIs, tobacco abuse which she continues.. Metastatic disease. Patient coronary artery disease being treated by stents x2 at [facility]. Patient does continue oral therapy for her metastatic breast cancer. Patient denies any changes in baseline meds. No history of trauma. No specific ill contacts. Review of Systems: Review of Systems: Constitutional: Denies fever or chills Eyes: Denies change in visual acuity HENT: Denies nasal congestion or sore throat Respiratory: Complains of cough and shortness of breath Cardiovascular: Denies chest pain or edema GI: Denies abdominal pain, nausea, vomiting, bloody stools or diarrhea : Denies dysuria Musculoskeletal: Denies back pain or joint pain Integument: Denies rash Neurologic: Denies headache, focal weakness or sensory changes Endocrine: Denies polyuria or polydipsia Lymphatic: Denies swollen glands Psychiatric: Denies depression or anxiety Family History: Family History: Noncontributory to presentation Current Medications: Current Meds: See nursing for home meds Allergies: Allergies: Allergies Coded Allergies Type Severity Reaction Last Updated Verified morphine Allergy Intermediate Itching 07/11/19 Yes Physical Exam: PE: Constitutional: no acute distress, non-toxic appearance. [] HENT: Normocephalic, atraumatic, bilateral external ears normal, oropharynx moist, no oral exudates, nose normal. [] Eyes: PERRLA, EOMI, conjunctiva normal, no discharge. [] Neck: Normal range of motion, no tenderness, supple, no stridor. [] Cardiovascular:Heart rate regular rhythm, systolic murmur [] Lungs & Thorax: Bilateral breath sounds equal apex with scattered wheezes and crackles auscultation. Surgery scar Abdomen: Bowel sounds normal, soft, no tenderness, no masses, no pulsatile masses. Old surgery scars Skin: Warm, dry, no erythema, no rash. Poor turgor Back: No tenderness, no CVA tenderness. [] Extremities: No tenderness, no cyanosis, no clubbing, ROM intact, no edema. Arthritic changes. No cording appreciated Neurologic: Alert and oriented X 3, normal motor function, normal sensory function, no focal deficits noted. [] Psychologic: Affect anxious l, judgement normal, mood normal. [] Current Patient Data: Labs: Laboratory Tests Test 12/28/20 22:01 12/28/20 22:50 Urine Collection Type Unknown Urine Color Yellow Urine Clarity Clear Urine pH 6.0 Urine Specific [place] 1.020 Urine Protein Neg (NEG-TRACE) Urine Glucose (UA) 100 mg/dL (NEG) Urine Ketones (Stick) Neg mg/dL (NEG) Urine Blood Mod (NEG) Urine Nitrite Neg (NEG) Urine Bilirubin Neg (NEG) Urine Urobilinogen Dipstick 0.2 mg/dL (0.2 mg/dL) Urine Leukocyte Esterase Neg (NEG) Urine RBC 1-2 /HPF (0-2) Urine WBC 0 /HPF (0-4) Urine Bacteria 0 /HPF (0-FEW) White Blood Count 6.5 x10^3/uL (4.0-11.0) Red Blood Count 4.07 x10^6/uL (3.50-5.40) Hemoglobin 14.6 g/dL (12.0-15.5) Hematocrit 43.5 % (36.0-47.0) Mean Corpuscular Volume 107 fL (79-100) H Mean Corpuscular Hemoglobin 36 pg (25-35) H Mean Corpuscular Hemoglobin Concent 34 g/dL (31-37) Red Cell Distribution Width 14.4 % (11.5-14.5) Platelet Count 157 x10^3/uL (140-400) Neutrophils (%) (Auto) 66 % (31-73) Lymphocytes (%) (Auto) 21 % (24-48) L Monocytes (%) (Auto) 11 % (0-9) H Eosinophils (%) (Auto) 2 % (0-3) Basophils (%) (Auto) 1 % (0-3) Neutrophils # (Auto) 4.2 x10^3uL (1.8-7.7) Lymphocytes # (Auto) 1.4 x10^3/uL (1.0-4.8) Monocytes # (Auto) 0.7 x10^3/uL (0.0-1.1) Eosinophils # (Auto) 0.1 x10^3/uL (0.0-0.7) Basophils # (Auto) 0.0 x10^3/uL (0.0-0.2) Sodium Level 146 mmol/L (136-145) H Potassium Level 3.5 mmol/L (3.5-5.1) Chloride Level 110 mmol/L (98-107) H Carbon Dioxide Level 29 mmol/L (21-32) Anion Gap 7 (6-14) Blood Urea Nitrogen 16 mg/dL (7-20) Creatinine 0.8 mg/dL (0.6-1.0) Estimated GFR (Cockcroft-Gault) 69.7 BUN/Creatinine Ratio 20 (6-20) Glucose Level 129 mg/dL (70-99) H Calcium Level 8.6 mg/dL (8.5-10.1) Total Bilirubin 0.4 mg/dL (0.2-1.0) Aspartate Amino Transferase (AST) 29 U/L (15-37) Alanine Aminotransferase (ALT) 34 U/L (14-59) Alkaline Phosphatase 136 U/L (46-116) H AR-Lpo-N-Type Natriuretic Peptide 251 pg/mL (0-449) Total Protein 6.4 g/dL (6.4-8.2) Albumin 3.4 g/dL (3.4-5.0) Albumin/Globulin Ratio 1.1 (1.0-1.7) Vital Signs: Vital Signs Date Time Temp Pulse Resp B/P (MAP) Pulse Ox O2 Delivery O2 Flow Rate FiO2 12/28/20 21:42 98.1 108 18 125/72 97 Room Air EKG: EKG: My interpretation EKG shows a sinus rhythm 88 bpm. No acute morphology appre ciated time of EKG is 2254 hrs My interpretation. follow-up EKG at 0431 hrs. shows no acute interval changes. Sinus rhythm at 77 bpm. Occasional PVC. Radiology/Procedures: Radiology/Procedures: [][address] [address] IMAGING REPORT Signed PATIENT: DEB HOLLY ACCOUNT: [id number] : 1945 LOCATION: ER AGE: 75 SEX: F EXAM STATUS: REG ER ORD. PHYSICIAN: ROSANA GUZMAN MD REASON: dyspnea, breast cancer, OMNI 350, 100ml PROCEDURE: CT ANGIOGRAPHY CHEST Study: CT CHEST WITH CONTRAST - PULMONARY ANGIOGRAM History: Dyspnea, breast cancer Comparison: CT chest 07/10/2019 Technique: Helical CT of the chest performed after the administration of 100 mL Omnipaque 350 intravenous contrast and timed for angiographic evaluation of the pulmonary arteries per PE protocol. Coronal and sagittal 3D MIP reformations were obtained. One or more of the following individualized dose reduction techniques were utilized for this examination: 1. Automated exposure control 2. Adjustment of the mA and/or kV according to patient size 3. Use of iterative reconstruction technique. Findings: Pulmonary Arteries: Contrast bolus is adequate. No acute pulmonary embolism. Heart/Systemic Vasculature: Heart is normal in size. Trace pericardial fluid. The thoracic aorta is enlarged in the ascending portion measuring 5.0 cm in the proximal descending portion, previously 4.9 cm. Mild calcified aortic atherosclerosis. Unable to evaluate for aortic dissection due to phase of contrast. Mediastinum: Multiple small mediastinal and hilar lymph nodes are unchanged. Lungs: There is a 7 mm nodule in the posterior left lower lobe (image 91). There tiny pulmonary nodules including a 3 subpleural nodule in the anterior left upper lobe, and 3 mm nodule in the right upper lobe are unchanged. There is mild airway wall thickening. Airways are clear. Pleural effusion on prior exam have resolved. Neck/Axilla/Body Wall: There are surgical clips in the right axilla. No axillary lymphadenopathy. There are postoperative changes of the right breast with a unchanged. A 1 cm fluid collection in the medial upper left breast. There are adjacent surgical clips. Upper Abdomen: Multiple hepatic cysts, the largest measuring 1.9 cm distally, are unchanged. Unchanged subcentimeter right adrenal lesion The gallbladder surgically absent. Bones: There is a new sclerotic lesion in the T7 vertebral body. IMPRESSION: 1. No acute pulmonary embolism. 2. New sclerotic lesion in the T7 vertebral body and probable new 7 mm pulmonary nodule in the left lower lobe suspicious for metastatic disease. Several additional small nodules in the upper lobes are unchanged. 3. Mild emphysema. 4. Descending thoracic aortic aneurysm measuring 5 cm, previously 4.9 cm. 5. Unchanged 2.8 cm right adrenal nodule. 6. Unchanged fluid collection in the right breast, likely postoperative seroma. Electronically signed by: Sahara Muhammad MD (12/29/2020 3:36 AM) [id number] DICTATED AND SIGNED BY: SAHARA MUHAMMAD MD DATE: 12/29/20316 CC: ROSANA GUZMAN MD; NICHELLE SOUZA ~MTH0 0 Heart Score: C/O Chest Pain: N/A HEART Score for Chest Pain: HEART Score for Chest Pain Response (Comments) Value History Moderately Suspicious 1 Age > 65 2 Risk Factors 1 or 2 Risk Factors 1 Troponin < Normal Limit 0 Total 4 Risk Factors: Risk Factors: DM, Current or recent (<one month) smoker, HTN, HLP, family history of CAD, obesity. Risk Scores: Score 0 - 3: 2.5% MACE over next 6 weeks - Discharge Home Score 4 - 6: 20.3% MACE over next 6 weeks - Admit for Clinical Observation Score 7 - 10: 72.7% MACE over next 6 weeks - Early Invasive Strategies Course & Med Decision Making: Course & Med Decision Making Pertinent Labs and Imaging studies reviewed. (See chart for details) Discussed chest x-ray, CT EKG and lab findings with patient. Patient elects to be discharged home. Patient will be started on Zithromax and to take 250 mg daily. Patient take prednisone 50 mg at for 5 days. Patient follow-up primary care. Patient use MDI 2 puffs 4 times a day. Patient currently trying to collect further evaluation and admission. Patient follow-up primary care. Impression: 1. COPD exacerbation 2. History of metastatic breast Stage IV 3. History of colon cancer 4. History of coronary artery disease status post PMC stents x2 5. History of CHF 6. History of continued tobacco use [] Dragon Disclaimer: Dragon Disclaimer: This electronic medical record was generated, in whole or in part, using a voice recognition dictation system. Departure Departure: Referrals: NICHELLE SOUZA (PCP) Scripts Azithromycin (ZITHROMAX) 250 Mg Tablet 250 MG PO DAILY for ANTI-BIOTIC for 5 Days, #5 TAB 0 Refills Prov: ROSANA GUZMAN MD 12/29/20 Prednisone (PREDNISONE) 50 Mg Tablet 50 MG PO DAILY for copd for 5 Days, #5 TAB Prov: ROSANA GUZMAN MD 12/29/20 Albuterol Sulfate (VENTOLIN HFA INHALER) 18 Gm Hfa.aer.ad 2 PUFF IH PRN Q4HRS PRN for FOR ASTHMA for 30 Days, #30 EACH 0 Refills Prov: ROSANA GUZMAN MD 12/29/20 Dragon Disclaimer This chart was dictated in whole or in part using Voice Recognition software in a busy, high-work load, and often noisy Emergency Department environment. It may contain unintended and wholly unrecognized errors or omissions. ROSANA GUZMAN MD Dec 28, 2020 23:50
--- NOTE | 2020-12-28 23:51 | RAD ---
EXAMINATION: Chest radiograph. VIEWS: 2 COMPARISON: CT dated the 20 INDICATION:75 years, Female, shortness of breath. FINDINGS: Normal cardiomediastinal silhouette. Tortuous thoracic aorta. Redemonstrated mild to moderate pulmona ry emphysema. No focal consolidation. No pleural effusion or pneumothorax. No acute osseous process. IMPRESSION: No acute cardiopulmonary process. Electronically signed by: Alexx Hobbs MD (12/28/2020 11:49 PM) [facility]
[2020-12-29] MEDS ORDERED: methylPREDNISolone SOD SUCC PF 125 MG/2 ML VIAL. IV ONE (00:30)
[2020-12-29] MEDS ORDERED: CONTRAST GIVEN. MC PRN (02:15)
[2020-12-29] MEDS ORDERED: IOHEXOL 350 MG/ML 100 ML VIAL. IV ONE (02:30)
[2020-12-29] MEDS ORDERED: diphenhydrAMINE 50 MG/ML VIAL IVP ONE (03:00)
--- NOTE | 2020-12-29 03:39 | RAD ---
Study: CT CHEST WITH CONTRAST - PULMONARY ANGIOGRAM History: Dyspnea, breast cancer Comparison: CT chest 07/10/2019 Technique: Helical CT of the chest performed after the administration of 100 mL Omnipaque 350 intrav enous contrast and timed for angiographic evaluation of the pulmonary arteries per PE protocol. Coron al and sagittal 3D MIP reformations were obtained. One or more of the following individualized dose reduction techniques were utilized for this examinat ion: 1. Automated exposure control 2. Adjustment of the mA and/or kV according to patient size 3. Use of iterative reconstruction technique. Findings: Pulmonary Arteries: Contrast bolus is adequate. No acute pulmonary embolism. Heart/Systemic Vasculature: Heart is normal in size. Trace pericardial fluid. The thoracic aorta is e nlarged in the ascending portion measuring 5.0 cm in the proximal descending portion, previously 4.9 cm. Mild calcified aortic atherosclerosis. Unable to evaluate for aortic dissection due to phase of c ontrast. Mediastinum: Multiple small mediastinal and hilar lymph nodes are unchanged. Lungs: There is a 7 mm nodule in the posterior left lower lobe (image 91). There tiny pulmonary nodul es including a 3 subpleural nodule in the anterior left upper lobe, and 3 mm nodule in the right uppe r lobe are unchanged. There is mild airway wall thickening. Airways are clear. Pleural effusion on pr ior exam have resolved. Neck/Axilla/Body Wall: There are surgical clips in the right axilla. No axillary lymphadenopathy. The re are postoperative changes of the right breast with a unchanged. A 1 cm fluid collection in the med ial upper left breast. There are adjacent surgical clips. Upper Abdomen: Multiple hepatic cysts, the largest measuring 1.9 cm distally, are unchanged. Unchange d subcentimeter right adrenal lesion The gallbladder surgically absent. Bones: There is a new sclerotic lesion in the T7 vertebral body. IMPRESSION: 1. No acute pulmonary embolism. 2. New sclerotic lesion in the T7 vertebral body and probable new 7 mm pulmonary nodule in the left lower lobe suspicious for metastatic disease. Several additional small nodules in the upper lobes are unchanged. 3. Mild emphysema. 4. Descending thoracic aortic aneurysm measuring 5 cm, previously 4.9 cm. 5. Unchanged 2.8 cm right adrenal nodule. 6. Unchanged fluid collection in the right breast, likely postoperative seroma. Electronically signed by: Sahara Muhammad MD (12/29/2020 3:36 AM) [id number]
[2020-12-29] MEDS ORDERED: ALBU2.5V8 IH (04:05)
[2020-12-29] MEDS ORDERED: AZIT250T PO (04:05)
[2020-12-29] MEDS ORDERED: PRED50TA PO (04:05)
[2020-12-29 04:30] VITALS: BP 142/74
[2020-12-29] MEDS ORDERED: ALBUTEROL SULFATE 8GM INHALER. INH ONE (04:30)
[2020-12-29] MEDS ORDERED: AZITHROMYCIN 250 MG TABLET. PO ONE (04:30)
--- NOTE | 2020-12-29 05:04 | EKG ---
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
== END 2020-12-29 05:00 | disposition home or self-care (01) ==
LOC: ER 21:01
DX: J44.1 Chronic obstructive pulmonary disease with (acute) exacerbation (principal); I25.10 Atherosclerotic heart disease of native coronary artery without angina pectoris; J44.9 Chronic obstructive pulmonary disease, unspecified; E78.00 Pure hypercholesterolemia, unspecified; I10 Essential (primary) hypertension; I25.2 Old myocardial infarction; F17.210 Nicotine dependence, cigarettes, uncomplicated; Z20.822 Contact with and (suspected) exposure to COVID-19; Z85.038 Personal history of other malignant neoplasm of large intestine; Z85.3 Personal history of malignant neoplasm of breast; Z88.5 Allergy status to narcotic agent
CPT/HCPCS: 36415; 71046; 71275; 80053; 81001; 83880; 84484; 85025; 93005; 94640; 96374; 96375; 99285; C9803; J1200; J2930; Q9967; U0003; 94664